=== PATIENT | male | born 1965 | race Caucasian/White ===

== ENCOUNTER 2021-03-01 13:15 | Inpatient (IN) | payer OTHER, BC ==
[~2021-03-01 13:15] MED LIST: Iopamidol-370 76% 500 ML 1 ML ONE
[2021-03-01] MEDS ORDERED: Calcium Chloride 1 GM/10 ML Abboject SYRINGE ONE (13:22)
[2021-03-01] MEDS ORDERED: Ondansetron PF 4 MG/2 ML Vial ONE (13:22)
[2021-03-01 13:42] LABS: Hemoglobin 15.2 g/dL (14.0-18.0); Mean Corpuscular Hemoglobin 35.6 pg (27.0-31.0); RBC Distribution Width 13.9 % (11.5-14.5); Red Blood Cell (RBC) Count 4.27 mill/uL (4.70-6.10); White Blood Cell (WBC) Count 19.8 thou/uL (4.8-10.8)
[2021-03-01 13:53] LABS: INR-International Normal Ratio 1.9; PTT 32.6 sec (22.9-36.1); Prothrombin Time 21.7 sec (12.0-14.7)
[2021-03-01 13:54] LABS: ALT (SGPT) 26 U/L (8-55); AST (SGOT) 32 U/L (5-34); Albumin 2.9 g/dL (3.5-5.0); Alkaline Phosphatase 53 U/L (40-110); Anion Gap 24 mmol/L (10-20); BUN (Urea Nitrogen) 47 mg/dL (8.4-25.7); Bilirubin, Total 2.7 mg/dL (0.2-1.2); Calc. Creatinine Clearance 0 mL/min (70-130); Carbon Dioxide 13 mmol/L (22-29); Chloride 96 mmol/L (98-107); Globulin 3.6 g/dL (2.4-3.5); Glucose 376 mg/dL (70-105); Potassium 4.4 mmol/L (3.5-5.1); Protein, Total 6.5 g/dL (6.0-8.3); Sodium 129 mmol/L (136-145)
[2021-03-01 14:01] LABS: Band 72 % (5-11); Lymphocytes 2 % (21-51); MDiff Complete? YES; Macrocytosis SLIGHT = 6-15 cells (100X) (0-5/hpf); Mean Platelet Volume 8.6 fL (7.4-10.4); Metamyelocyte 6 % (0-0); Monocytes 3 % (0-10); Neutrophil 17 % (42-75); Platelet Count 86 thou/uL (130-400); Platelet Morphology Comment Appears Decreased; Polychromasia SLIGHT = 2-3 cells (100X) (0-2/hpf); Reflex for Review?? YES
[2021-03-01 14:07] LABS: Bacteria/HPF 3+ HPF (None Seen); Bilirubin Negative (Negative); Blood, Urine 3+ (Negative); Clarity Turbid (Clear); Glucose, Urine (Dipstick) Normal (Negative); Ketone, Urine Trace mg/dL (Negative); Leukocyte 75 Leu/uL (Negative); Nitrite Negative (Negative); Protein, Urine (Dipstick) 50 mg/dL (Neg-Trace); RBC/HPF 0-3 HPF (0-3); Squamous Epithelial 0-3 HPF (0-3); Urobilinogen Normal mg/dL (Less than 2)
[2021-03-01 14:16] LABS: Amphetamine Not Detected (NotDetected); Barbiturates Screen Not Detected (NotDetected); Benzodiazepine Screen Not Detected (NotDetected); Cocaine Metabolite Screen Not Detected (NotDetected); Medtox Control Line Valid? VALID (VALID); Medtox Reader # READER 4; Methadone Not Detected (NotDetected); Methamphetamine Not Detected (NotDetected); Opiate Screen Detected (NotDetected); Oxycodone Screen Not Detected (NotDetected); Phencyclidine (PCP) Not Detected (NotDetected); THC/Cannabinoid Screen Not Detected (NotDetected); Tricyclic Screen Not Detected (NotDetected)
[2021-03-01 14:19] LABS: Acetaminophen Less than 6.0 mcg/mL (10.0-30.0); Alcohol Less than 10 mg/dL (Less than 10); Salicylate Less than 8.0 mg/dL (15.0-30.0)
[2021-03-01] MEDS ORDERED: Acetaminophen/Codeine 30-300mg Tablet PO PRN (17:25)
[2021-03-01] MEDS ORDERED: traMADol HCl 50 MG TAB PO PRN (17:25)
[2021-03-01] MEDS ORDERED: Dextrose 50% Abboject 50 ML SYRINGE SLOW IVP PRN (17:25)
[2021-03-01] MEDS ORDERED: Dextrose 5% in Water 1,000 ML IV PRN (17:25)
[2021-03-01] MEDS ORDERED: Ondansetron PF 4 MG/2 ML Vial IVP PRN (17:25)
[2021-03-01] MEDS ORDERED: Ondansetron ODT 4 MG TAB PO PRN (17:25)
[2021-03-01] MEDS ORDERED: Insulin Regular 300 UNITS/3 ML VIAL SC PRN (17:25)
[2021-03-01] MEDS ORDERED: hydrALAZINE 20 MG/ML VIAL SLOW IVP PRN (17:25)
[2021-03-01] MEDS ORDERED: Ibuprofen 200 MG TAB PO PRN (18:12)
[2021-03-01] MEDS ORDERED: Acetylcysteine 20% 200 MG/ML 30 ML VIAL PO SCH (18:15)
[2021-03-01 19:07] LABS: Phosphorus 3.2 mg/dL (2.3-4.7)
[2021-03-01] MEDS: Sodium Bicarbonate 150 MEQ in Dextrose 5% in Water 1,000 ML IV SCH (19:12)
[2021-03-01] MEDS: Insulin Regular 300 UNITS/3 ML VIAL SC PRN (19:13)
[2021-03-01 20:54] LABS: Lactic Acid 6.9 mmol/L (0.5-2.2)
[2021-03-01 20:55] LABS: Anion Gap 22 mmol/L (10-20); BUN (Urea Nitrogen) 53 mg/dL (8.4-25.7); Calc. Creatinine Clearance 22 mL/min (70-130); Calcium 8.1 mg/dL (7.8-10.44); Carbon Dioxide 12 mmol/L (22-29); Chloride 98 mmol/L (98-107); Glucose 311 mg/dL (70-105); Phosphorus 3.2 mg/dL (2.3-4.7); Potassium 4.3 mmol/L (3.5-5.1); Sodium 128 mmol/L (136-145)
[2021-03-01] MEDS ORDERED: Magnesium Sulfate 4 GM in Sodium Chloride 0.9% 250 ML 250 ML IVPB SCH (21:30)
[2021-03-01] MEDS: Gabapentin 100 MG CAP PO SCH (22:33)
[2021-03-01] MEDS: Oxazepam 10 MG CAP PO SCH (22:33)
[2021-03-01] MEDS: Famotidine 20 MG TAB PO SCH (22:34)
[2021-03-01 23:37] LABS: Lactic Acid 6.3 mmol/L (0.5-2.2)
[2021-03-02] MEDS: Acetaminophen 500 MG TAB PO SCH ×2 (00:02→05:55)
[2021-03-02] MEDS: Oxazepam 10 MG CAP PO SCH ×2 (05:56→17:37)
[2021-03-02 06:25] LABS: Hemoglobin 16.8 g/dL (14.0-18.0); Mean Corpuscular HGB CONC 32.9 g/dL (32.0-36.0); Mean Platelet Volume 9.4 fL (7.4-10.4); Platelet Count 64 thou/uL (130-400); RBC Distribution Width 15.6 % (11.5-14.5); Red Blood Cell (RBC) Count 5.11 mill/uL (4.70-6.10); White Blood Cell (WBC) Count 22.4 thou/uL (4.8-10.8)
[2021-03-02 06:27] LABS: Hemoglobin A1c 6.8 % (4.0-6.0)
[2021-03-02 06:40] LABS: Anion Gap 23 mmol/L (10-20); BUN (Urea Nitrogen) 59 mg/dL (8.4-25.7); Calc. Creatinine Clearance 22 mL/min (70-130); Calcium 7.8 mg/dL (7.8-10.44); Carbon Dioxide 12 mmol/L (22-29); Chloride 97 mmol/L (98-107); Glucose 301 mg/dL (70-105); Phosphorus 2.6 mg/dL (2.3-4.7); Potassium 4.9 mmol/L (3.5-5.1); Sodium 127 mmol/L (136-145)
[2021-03-02] MEDS ORDERED: HumaLOG 300 UNITS/3 ML VIAL SC PRN ×2 (06:44)
[2021-03-02] MEDS: Insulin Regular 300 UNITS/3 ML VIAL SC PRN (06:45)
[2021-03-02 06:48] LABS: Lactic Acid 5.9 mmol/L (0.5-2.2)
[2021-03-02 06:52] LABS: Band 47 % (5-11); Lymphocytes 5 % (21-51); MDiff Complete? YES; Monocytes 2 % (0-10); Neutrophil 46 % (42-75); Platelet Morphology Comment Appears Decreased; Toxic Granulation SLIGHT
[2021-03-02 07:49] LABS: ALT (SGPT) 27 U/L (8-55); AST (SGOT) 41 U/L (5-34); Albumin 2.7 g/dL (3.5-5.0); Alkaline Phosphatase 57 U/L (40-110); Bilirubin, Direct 1.2 mg/dL (0.1-0.3); Bilirubin, Total 2.4 mg/dL (0.2-1.2); Protein, Total 6.3 g/dL (6.0-8.3)
[2021-03-02] MEDS: Sodium Bicarbonate 150 MEQ in Dextrose 5% in Water 1,000 ML IV SCH (07:57)
[2021-03-02] MEDS ORDERED: Phytonadione 5 MG in Sodium Chloride 0.9% 50 ML IVPB SCH (08:45)
[2021-03-02 09:48] LABS: INR-International Normal Ratio 1.5; PTT 31.2 sec (22.9-36.1); Prothrombin Time 18.3 sec (12.0-14.7)
[2021-03-02] MEDS ORDERED: Albumin 25% 25 GM/100 ML BOT IVPB SCH (09:48)
[2021-03-02 09:56] LABS: Actual Bicarbonate (HCO3a) 12.4 mEq/L (22-28); Base Excess (BEa) -8.1 mEq/L (-2.0 to +3.0); Calcium, Ionized (arterial) 1.02 mmol/L (1.12-1.30); Carboxyhemoglobin (COHb) 0.9 gm% (0.0-3.0); O2 Tension (PaO2), arterial 70.2 mmHg (80.0-100.0); Potassium - ABG Lab 3.73 mmol/L (3.70-5.30); pH, Arterial 7.46 (7.35-7.45)
[2021-03-02 10:02] LABS: ALV-art Gradient 56.905 mmHg (0-20); CO2 Tension 18.1 mmHg (35.0-45.0); Puncture Site LRA
[2021-03-02] MEDS: Sodium Chloride 0.9% 1,000 ML IV SCH ×3 (10:49→22:40)
[2021-03-02] MEDS: Thiamine 100 MG TAB PO SCH (11:22)
[2021-03-02] MEDS: Folic Acid 1 MG TAB PO SCH (11:22)
[2021-03-02] MEDS: Propranolol 10 MG TAB PO SCH (11:22)
[2021-03-02] MEDS: Gabapentin 100 MG CAP PO SCH (11:23)
[2021-03-02] MEDS ORDERED: Phenylephrine 10 MG/ML VIAL ONE (11:44)
[2021-03-02] MEDS ORDERED: Fentanyl 250 MCG/5 ML VIAL ONE (11:44)
[2021-03-02] MEDS ORDERED: Bupivacaine 0.25% HCL 30 ML VIAL ONE (12:19)
[2021-03-02] MEDS ORDERED: EPINEPHrine 1 MG/ML AMP ONE (12:19)
[2021-03-02] MEDS ORDERED: PROPOFOL 200 MG/20 ML VIAL ONE (12:32)
[2021-03-02] MEDS ORDERED: Rocuronium Bromide 10 MG/ML (10ML VIAL) ONE (12:32)
[2021-03-02] MEDS ORDERED: Succinylcholine 200 MG/10 ml SYRINGE FS ONE (12:32)
[2021-03-02] MEDS ORDERED: ePHEDrine Sulfate 50 MG/10 ML VIAL ONE (12:32)
[2021-03-02] MEDS ORDERED: PHENYLEPHRINE-NS 100 MCG/ML 10 ML SYRINGE ONE (12:32)
[2021-03-02] MEDS ORDERED: Calcium Chloride 1 GM/10 ML Abboject SYRINGE ONE (12:32)
[2021-03-02] MEDS ORDERED: Sodium Bicarb 50 MEQ/50 ML Abboject 8.4% SYRINGE ONE (12:55)
[2021-03-02 13:12] LABS: SARS-CoV-2 PCR by NAA Not Detected (NotDetected)
[2021-03-02] MEDS ORDERED: MEROPENEM 1 GM/50 ML 1 GM in Premix Bag 1 BAG IVPB SCH (13:15)
[2021-03-02] MEDS ORDERED: Albumin 5% 500 ML ONE (13:37)
[2021-03-02 15:07] LABS: INR-International Normal Ratio 1.8; PTT 36.5 sec (22.9-36.1); Prothrombin Time 20.8 sec (12.0-14.7)
[2021-03-02] MEDS ORDERED: Fentanyl CADD 100 ML ONE (16:11)
[2021-03-02 16:19] LABS: Actual Bicarbonate (HCO3a) 18.1 mEq/L (22-28); Base Excess (BEa) -7.1 mEq/L (-2.0 to +3.0); CO2 Tension 35.4 mmHg (35.0-45.0); Calcium, Ionized (arterial) 1.07 mmol/L (1.12-1.30); Carboxyhemoglobin (COHb) 0.3 gm% (0.0-3.0); Hemoglobin (Hb) 10.9 g/dL (14.0-18.0); O2 Tension (PaO2), arterial 119.2 mmHg (80.0-100.0); Potassium - ABG Lab 3.74 mmol/L (3.70-5.30); pH, Arterial 7.33 (7.35-7.45)
[2021-03-02 16:20] LABS: Puncture Site Arterial Line
[2021-03-02] MEDS: HUMULIN R 100 UNITS in Sodium Chloride 0.9% 100 ML IVPB SCH (16:51)
[2021-03-02] MEDS ORDERED: Ventilator Sedation Protocol 1 EACH FS SCH (19:41)
[2021-03-02] MEDS ORDERED: Propofol BOLUS 1,000 MG/100 ML VIAL IV PRN (19:45)
[2021-03-02] MEDS ORDERED: Morphine 2 MG/ML VIAL SLOW IVP PRN (19:45)
[2021-03-02] MEDS ORDERED: DISCONTINUE PREVIOUS NARCOTIC PAIN MEDICATIONS AND BENZODIAZEPINES FS SCH (19:45)
[2021-03-02] MEDS ORDERED: Fentanyl BOLUS 250 ML IVPB PRN (19:45)
[2021-03-02] MEDS ORDERED: Fentanyl CADD 100 ML IV SCH (19:45)
[2021-03-02] MEDS ORDERED: Lorazepam 2 MG/ML VIAL SLOW IVP PRN (19:45)
[2021-03-02] MEDS ORDERED: Propofol 1,000 MG/100 ML VIAL IV PRN (19:45)
[2021-03-02] MEDS ORDERED: Sodium Chloride 0.9% 500 ML IV SCH (22:00)
[2021-03-02] MEDS: Famotidine 20 MG TAB PO SCH (22:40)
[2021-03-03 05:48] LABS: ALT (SGPT) 16 U/L (8-55); AST (SGOT) 23 U/L (5-34); Alkaline Phosphatase 47 U/L (40-110); Bilirubin, Total 2.9 mg/dL (0.2-1.2); Protein, Total 5.1 g/dL (6.0-8.3)
[2021-03-03 05:49] LABS: Anion Gap 15 mmol/L (10-20); BUN (Urea Nitrogen) 61 mg/dL (8.4-25.7); Calc. Creatinine Clearance 37 mL/min (70-130); Calcium 8.2 mg/dL (7.8-10.44); Carbon Dioxide 20 mmol/L (22-29); Chloride 107 mmol/L (98-107); Glucose 163 mg/dL (70-105); Magnesium 1.9 mg/dL (1.6-2.6); Phosphorus 1.7 mg/dL (2.3-4.7); Sodium 139 mmol/L (136-145)
[2021-03-03] MEDS: HUMULIN R 100 UNITS in Sodium Chloride 0.9% 100 ML IVPB SCH (06:10)
[2021-03-03] MEDS: Sodium Chloride 0.9% 1,000 ML IV SCH ×3 (06:15→21:39)
[2021-03-03 06:27] LABS: Hemoglobin 8.9 g/dL (14.0-18.0); Lymphocytes 6 % (21-51); MDiff Complete? YES; Mean Corpuscular HGB CONC 34.9 g/dL (32.0-36.0); Mean Corpuscular Hemoglobin 34.3 pg (27.0-31.0); Mean Corpuscular Volume 98.3 fL (78.0-98.0); Mean Platelet Volume 8.5 fL (7.4-10.4); Monocytes 4 % (0-10); Neutrophil 90 % (42-75); Platelet Count 55 thou/uL (130-400); Platelet Morphology Comment Appears Decreased; RBC Distribution Width 15.9 % (11.5-14.5); Red Blood Cell (RBC) Count 2.59 mill/uL (4.70-6.10); White Blood Cell (WBC) Count 10.6 thou/uL (4.8-10.8)
[2021-03-03 06:33] LABS: Phosphorus 1.8 mg/dL (2.3-4.7)
[2021-03-03] MEDS ORDERED: Potassium Phosphate 30 MMOL, Magnesium Sulfate 2 GM in Sodium Chloride 0.9% 250 ML 250 ML IVPB SCH (08:00)
[2021-03-03] MEDS ORDERED: Magnesium Sulfate 2 GM in Sodium Chloride 0.9% 100 ML IVPB SCH ×2 (08:00→09:00)
[2021-03-03] MEDS: Thiamine 100 MG TAB PO SCH (09:32)
[2021-03-03] MEDS: Folic Acid 1 MG TAB PO SCH (09:32)
[2021-03-03] MEDS: Pantoprazole 40 MG VIAL IVP SCH ×2 (09:32→21:24)
[2021-03-03] MEDS: Propranolol 10 MG TAB PO SCH (09:32)
[2021-03-03] MEDS ORDERED: Propofol 1,000 MG/100 ML VIAL IV ONE (10:05)
[2021-03-03] MEDS: Insulin Regular 300 UNITS/3 ML VIAL SC PRN (20:19)
[2021-03-04] MEDS: Insulin Regular 300 UNITS/3 ML VIAL SC PRN ×5 (00:23→20:07)
[2021-03-04 04:49] LABS: Hemoglobin 9.2 g/dL (14.0-18.0); Mean Corpuscular HGB CONC 34.5 g/dL (32.0-36.0); Mean Corpuscular Hemoglobin 34.7 pg (27.0-31.0); Mean Platelet Volume 8.2 fL (7.4-10.4); Platelet Count 44 thou/uL (130-400); RBC Distribution Width 16.1 % (11.5-14.5); Red Blood Cell (RBC) Count 2.65 mill/uL (4.70-6.10); White Blood Cell (WBC) Count 6.7 thou/uL (4.8-10.8)
[2021-03-04 04:53] LABS: Albumin 2.6 g/dL (3.5-5.0); Anion Gap 12 mmol/L (10-20); BUN (Urea Nitrogen) 55 mg/dL (8.4-25.7); BUN/Creatinine Ratio 33.95; Calc. Creatinine Clearance 63 mL/min (70-130); Carbon Dioxide 18 mmol/L (22-29); Chloride 117 mmol/L (98-107); Glucose 227 mg/dL (70-105); Magnesium 3.8 mg/dL (1.6-2.6); Potassium 3.2 mmol/L (3.5-5.1); Sodium 144 mmol/L (136-145)
[2021-03-04 04:59] LABS: Phosphorus 1.9 mg/dL (2.3-4.7)
[2021-03-04 05:03] LABS: Phosphorus 1.9 mg/dL (2.3-4.7)
[2021-03-04 05:08] LABS: Band 13 % (5-11); Eosinophils 1 % (0-10); Hypochromia SLIGHT = 6-15 cells (100X) (0-5/hpf); Lymphocytes 6 % (21-51); MDiff Complete? YES; Metamyelocyte 1 % (0-0); Monocytes 3 % (0-10); Neutrophil 76 % (42-75); Platelet Morphology Comment Appears Decreased
[2021-03-04] MEDS ORDERED: Propofol BOLUS 1,000 MG/100 ML VIAL IV PRN (05:45)
[2021-03-04] MEDS: Propofol 1,000 MG/100 ML VIAL IV PRN ×2 (05:57→16:50)
[2021-03-04] MEDS ORDERED: Potassium Phosphate 30 MMOL in Sodium Chloride 0.9% 250 ML 250 ML IVPB SCH (06:00)
[2021-03-04] MEDS: Thiamine 100 MG TAB PO SCH (09:24)
[2021-03-04] MEDS: Pantoprazole 40 MG VIAL IVP SCH ×2 (09:24→20:05)
[2021-03-04] MEDS: Propranolol 10 MG TAB PO SCH (09:24)
[2021-03-04] MEDS: Folic Acid 1 MG TAB PO SCH (09:24)
[2021-03-04] MEDS: Sodium Chloride 0.9% 1,000 ML IV SCH ×3 (09:25→20:05)
[2021-03-04] MEDS: Sodium Chloride 0.9% (PF) 10 ML VIAL FS PRN (09:25)
[2021-03-04] MEDS: Oxazepam 10 MG CAP PO SCH ×2 (12:25→20:05)
[2021-03-05] MEDS: Insulin Regular 300 UNITS/3 ML VIAL SC PRN ×5 (00:28→20:48)
[2021-03-05] MEDS: Oxazepam 10 MG CAP PO SCH ×3 (04:11→20:35)
[2021-03-05] MEDS: Propofol 1,000 MG/100 ML VIAL IV PRN ×2 (04:21→11:37)
[2021-03-05 04:46] LABS: Albumin 2.5 g/dL (3.5-5.0); Anion Gap 11 mmol/L (10-20); BUN (Urea Nitrogen) 43 mg/dL (8.4-25.7); BUN/Creatinine Ratio 35.25; Calc. Creatinine Clearance 83 mL/min (70-130); Carbon Dioxide 19 mmol/L (22-29); Chloride 123 mmol/L (98-107); Glucose 208 mg/dL (70-105); Phosphorus 2.1 mg/dL (2.3-4.7); Potassium 3.2 mmol/L (3.5-5.1); Sodium 150 mmol/L (136-145)
[2021-03-05] MEDS ORDERED: Potassium Phosphate 30 MMOL in Sodium Chloride 0.9% 250 ML 250 ML IVPB SCH (06:00)
[2021-03-05] MEDS: Lactated Ringer's 1,000 ML IV SCH ×2 (06:12→15:17)
[2021-03-05] MEDS: cefTRIAXone\\ROCEPHIN 1 GM in Sodium Chloride 0.9% 100 ML IVPB SCH (06:12)
[2021-03-05] MEDS: Thiamine 100 MG TAB PO SCH (08:07)
[2021-03-05] MEDS: Pantoprazole 40 MG VIAL IVP SCH ×2 (08:07→20:35)
[2021-03-05] MEDS: Folic Acid 1 MG TAB PO SCH (08:07)
[2021-03-05] MEDS: Propranolol 10 MG TAB PO SCH (09:20)
[2021-03-05] MEDS: Cyclobenzaprine 10 MG TAB PO PRN (11:37)
[2021-03-05] MEDS ORDERED: Fentanyl CADD 100 ML ONE (13:46)
[2021-03-05] MEDS: Dextrose 5% in Water 1,000 ML IV SCH (19:18)
[2021-03-06] MEDS: Insulin Regular 300 UNITS/3 ML VIAL SC PRN ×5 (00:12→21:01)
[2021-03-06] MEDS: Oxazepam 10 MG CAP PO SCH ×3 (03:34→20:48)
[2021-03-06 04:52] LABS: Band 6 % (5-11); Eosinophils 5 % (0-10); Hemoglobin 7.9 g/dL (14.0-18.0); Hypochromia SLIGHT = 6-15 cells (100X) (0-5/hpf); Lymphocytes 18 % (21-51); MDiff Complete? YES; Mean Corpuscular HGB CONC 34.2 g/dL (32.0-36.0); Mean Corpuscular Hemoglobin 35.1 pg (27.0-31.0); Mean Platelet Volume 9.3 fL (7.4-10.4); Monocytes 6 % (0-10); Neutrophil 65 % (42-75); Phosphorus 2.2 mg/dL (2.3-4.7); Platelet Count 48 thou/uL (130-400); Platelet Morphology Comment Appears Decreased; Polychromasia SLIGHT = 2-3 cells (100X) (0-2/hpf); RBC Distribution Width 15.7 % (11.5-14.5); Red Blood Cell (RBC) Count 2.24 mill/uL (4.70-6.10); White Blood Cell (WBC) Count 5.4 thou/uL (4.8-10.8)
[2021-03-06 04:55] LABS: Albumin 2.2 g/dL (3.5-5.0); Anion Gap 11 mmol/L (10-20); BUN (Urea Nitrogen) 33 mg/dL (8.4-25.7); BUN/Creatinine Ratio 30.28; Calc. Creatinine Clearance 91 mL/min (70-130); Calcium 7.8 mg/dL (7.8-10.44); Carbon Dioxide 18 mmol/L (22-29); Chloride 119 mmol/L (98-107); Glucose 320 mg/dL (70-105); Magnesium 1.6 mg/dL (1.6-2.6); Phosphorus 2.2 mg/dL (2.3-4.7); Potassium 3.5 mmol/L (3.5-5.1); Sodium 144 mmol/L (136-145)
[2021-03-06 04:58] LABS: ALT (SGPT) 21 U/L (8-55); AST (SGOT) 27 U/L (5-34); Albumin 2.2 g/dL (3.5-5.0); Alkaline Phosphatase 96 U/L (40-110); Bilirubin, Direct 1.6 mg/dL (0.1-0.3); Bilirubin, Total 2.3 mg/dL (0.2-1.2); Protein, Total 4.9 g/dL (6.0-8.3)
[2021-03-06] MEDS: cefTRIAXone\\ROCEPHIN 1 GM in Sodium Chloride 0.9% 100 ML IVPB SCH (05:00)
[2021-03-06] MEDS: Dextrose 5% in Water 1,000 ML IV SCH ×2 (05:41→14:20)
[2021-03-06] MEDS ORDERED: Magnesium Sulfate 4 GM, Potassium Phosphate 30 MMOL in Sodium Chloride 0.9% 250 ML 250 ML IVPB SCH (08:15)
[2021-03-06 08:56] LABS: INR-International Normal Ratio 1.3; PTT 33.3 sec (22.9-36.1)
[2021-03-06] MEDS: Pantoprazole 40 MG VIAL IVP SCH ×2 (09:05→20:49)
[2021-03-06] MEDS: Propranolol 10 MG TAB PO SCH (09:05)
[2021-03-06] MEDS: Folic Acid 1 MG TAB PO SCH (09:05)
[2021-03-06] MEDS: Thiamine 100 MG TAB PO SCH (09:06)
[2021-03-06] MEDS ORDERED: DC Sedation Protocol FS ONE (09:23)
[2021-03-06] MEDS ORDERED: Haloperidol Lactate 5 MG/ML VIAL SLOW IVP SCH (22:15)
[2021-03-07] MEDS: Dextrose 5% in Water 1,000 ML IV SCH (00:53)
[2021-03-07] MEDS: Insulin Regular 300 UNITS/3 ML VIAL SC PRN ×6 (01:20→20:06)
[2021-03-07] MEDS: Oxazepam 10 MG CAP PO SCH ×3 (04:24→20:05)
[2021-03-07 05:15] LABS: #Eosinphils 0.1 thou/uL (0.0-0.7); #Lymphocytes 0.9 thou/uL (1.20-3.40); #Monocytes 0.7 thou/uL (0.11-0.59); #Neutrophils 4.6 thou/uL (1.40-6.50); %Basophils 0.5 % (0.0-1.0); %Eosinophils 2.3 % (0.0-10.0); %Monocytes 11.2 % (0.0-10.0); %Neutrophils 72.1 % (42.0-75.0); Hemoglobin 7.7 g/dL (14.0-18.0); Mean Corpuscular HGB CONC 33.3 g/dL (32.0-36.0); Mean Corpuscular Hemoglobin 33.9 pg (27.0-31.0); Mean Platelet Volume 9.6 fL (7.4-10.4); Platelet Count 64 thou/uL (130-400); RBC Distribution Width 15.1 % (11.5-14.5); Red Blood Cell (RBC) Count 2.28 mill/uL (4.70-6.10); White Blood Cell (WBC) Count 6.4 thou/uL (4.8-10.8)
[2021-03-07 05:33] LABS: Anion Gap 13 mmol/L (10-20); BUN (Urea Nitrogen) 32 mg/dL (8.4-25.7); Calc. Creatinine Clearance 94 mL/min (70-130); Calcium 7.6 mg/dL (7.8-10.44); Carbon Dioxide 16 mmol/L (22-29); Chloride 117 mmol/L (98-107); Glucose 272 mg/dL (70-105); Phosphorus 2.5 mg/dL (2.3-4.7); Potassium 3.7 mmol/L (3.5-5.1); Sodium 142 mmol/L (136-145)
[2021-03-07] MEDS: cefTRIAXone\\ROCEPHIN 1 GM in Sodium Chloride 0.9% 100 ML IVPB SCH (06:18)
[2021-03-07] MEDS ORDERED: Potassium Phosphate 30 MMOL in Sodium Chloride 0.9% 500 ML IVPB SCH (08:15)
[2021-03-07] MEDS ORDERED: Potassium Phosphate 30 MMOL in Sodium Chloride 0.9% 250 ML 250 ML IVPB SCH (08:30)
[2021-03-07] MEDS: Sodium Chloride 0.9% (PF) 10 ML VIAL FS PRN (08:48)
[2021-03-07] MEDS: Pantoprazole 40 MG VIAL IVP SCH ×2 (08:48→20:06)
[2021-03-07] MEDS: Folic Acid 1 MG TAB PO SCH (08:48)
[2021-03-07] MEDS: Thiamine 100 MG TAB PO SCH (08:52)
[2021-03-07] MEDS ORDERED: Enoxaparin Sodium 30 MG/0.3 ML SYRINGE SC SCH (09:00)
[2021-03-07] MEDS: Propranolol 10 MG TAB PO SCH (09:16)
[2021-03-07] MEDS ORDERED: carBAMazepine 200 MG TAB PO SCH ×2 (09:30→12:00)
[2021-03-07] MEDS: carBAMazepine 200 MG TAB PO SCH ×2 (12:52→17:04)
[2021-03-07] MEDS: Cyclobenzaprine 10 MG TAB PO PRN (14:49)
[2021-03-08] MEDS: Insulin Regular 300 UNITS/3 ML VIAL SC PRN ×5 (00:59→20:44)
[2021-03-08] MEDS: Oxazepam 10 MG CAP PO SCH ×3 (04:00→20:45)
[2021-03-08 04:40] LABS: #Eosinphils 0.2 thou/uL (0.0-0.7); #Lymphocytes 0.8 thou/uL (1.20-3.40); #Monocytes 0.8 thou/uL (0.11-0.59); #Neutrophils 6.5 thou/uL (1.40-6.50); %Basophils 0.3 % (0.0-1.0); %Eosinophils 1.9 % (0.0-10.0); %Lymphocytes 10.2 % (21.0-51.0); %Monocytes 9.2 % (0.0-10.0); %Neutrophils 78.4 % (42.0-75.0); Hemoglobin 8.1 g/dL (14.0-18.0); Mean Corpuscular HGB CONC 33.9 g/dL (32.0-36.0); Mean Corpuscular Hemoglobin 34.7 pg (27.0-31.0); Mean Platelet Volume 9.7 fL (7.4-10.4); Platelet Count 90 thou/uL (130-400); RBC Distribution Width 14.9 % (11.5-14.5); Red Blood Cell (RBC) Count 2.32 mill/uL (4.70-6.10); White Blood Cell (WBC) Count 8.3 thou/uL (4.8-10.8)
[2021-03-08 04:49] LABS: INR-International Normal Ratio 1.3; PTT 28.6 sec (22.9-36.1); Prothrombin Time 16.4 sec (12.0-14.7)
[2021-03-08 04:57] LABS: Anion Gap 13 mmol/L (10-20); BUN (Urea Nitrogen) 33 mg/dL (8.4-25.7); Calc. Creatinine Clearance 98 mL/min (70-130); Carbon Dioxide 17 mmol/L (22-29); Chloride 117 mmol/L (98-107); Glucose 317 mg/dL (70-105); Magnesium 1.7 mg/dL (1.6-2.6); Phosphorus 2.6 mg/dL (2.3-4.7); Sodium 143 mmol/L (136-145)
[2021-03-08] MEDS: cefTRIAXone\\ROCEPHIN 1 GM in Sodium Chloride 0.9% 100 ML IVPB SCH (06:17)
[2021-03-08] MEDS ORDERED: Dextrose 5% in Water 1,000 ML IV PRN (06:50)
[2021-03-08] MEDS ORDERED: Dextrose 50% Abboject 50 ML SYRINGE SLOW IVP PRN (06:50)
[2021-03-08] MEDS ORDERED: Potassium Phosphate 30 MMOL, Magnesium Sulfate 3 GM in Sodium Chloride 0.9% 250 ML 250 ML IVPB SCH (07:00)
[2021-03-08] MEDS ORDERED: Magnesium Sulfate 3 GM in Sodium Chloride 0.9% 100 ML IV SCH (07:00)
[2021-03-08] MEDS: Folic Acid 1 MG TAB PO SCH (08:32)
[2021-03-08] MEDS: carBAMazepine 200 MG TAB PO SCH ×3 (08:32→17:07)
[2021-03-08] MEDS: Thiamine 100 MG TAB PO SCH (08:32)
[2021-03-08] MEDS: Pantoprazole 40 MG VIAL IVP SCH (08:33)
[2021-03-08] MEDS: Enoxaparin Sodium 40 MG/0.4 ML SYRINGE SC SCH (08:38)
[2021-03-08] MEDS ORDERED: Lantus 1000 UNITS/10 ML VIAL SC SCH ×2 (09:00→21:00)
[2021-03-08] MEDS: Propranolol 10 MG TAB PO SCH (09:40)
[2021-03-09] MEDS: Insulin Regular 300 UNITS/3 ML VIAL SC PRN ×5 (01:05→21:18)
[2021-03-09] MEDS: Oxazepam 10 MG CAP PO SCH ×3 (04:42→20:10)
[2021-03-09 05:07] LABS: #Eosinphils 0.2 thou/uL (0.0-0.7); #Lymphocytes 0.9 thou/uL (1.20-3.40); #Monocytes 0.9 thou/uL (0.11-0.59); #Neutrophils 6.3 thou/uL (1.40-6.50); %Basophils 0.1 % (0.0-1.0); %Eosinophils 2.3 % (0.0-10.0); %Lymphocytes 10.7 % (21.0-51.0); Hemoglobin 9.1 g/dL (14.0-18.0); Mean Corpuscular Hemoglobin 35.3 pg (27.0-31.0); Mean Platelet Volume 9.7 fL (7.4-10.4); Platelet Count 122 thou/uL (130-400); RBC Distribution Width 15.2 % (11.5-14.5); Red Blood Cell (RBC) Count 2.58 mill/uL (4.70-6.10); White Blood Cell (WBC) Count 8.3 thou/uL (4.8-10.8)
[2021-03-09 05:26] LABS: Anion Gap 13 mmol/L (10-20); BUN (Urea Nitrogen) 34 mg/dL (8.4-25.7); Calc. Creatinine Clearance 107 mL/min (70-130); Calcium 7.9 mg/dL (7.8-10.44); Carbon Dioxide 15 mmol/L (22-29); Chloride 121 mmol/L (98-107); Glucose 283 mg/dL (70-105); Potassium 4.2 mmol/L (3.5-5.1); Sodium 145 mmol/L (136-145)
[2021-03-09] MEDS: cefTRIAXone\\ROCEPHIN 1 GM in Sodium Chloride 0.9% 100 ML IVPB SCH (06:42)
[2021-03-09] MEDS: carBAMazepine 200 MG TAB PO SCH ×3 (08:54→17:23)
[2021-03-09] MEDS: Thiamine 100 MG TAB PO SCH (08:55)
[2021-03-09] MEDS: Enoxaparin Sodium 40 MG/0.4 ML SYRINGE SC SCH (08:55)
[2021-03-09] MEDS: Folic Acid 1 MG TAB PO SCH (08:56)
[2021-03-09] MEDS: FLUoxetine HCl 20 MG CAP PO SCH (08:56)
[2021-03-09] MEDS: Lantus 1000 UNITS/10 ML VIAL SC SCH ×2 (08:57→21:18)
[2021-03-09] MEDS: Pantoprazole 40 MG VIAL IVP SCH (09:03)
[2021-03-09] MEDS: Propranolol 10 MG TAB PO SCH (11:56)
[2021-03-09] MEDS ORDERED: Sodium Bicarbonate Tab 325 MG TAB PO SCH (21:00)
[2021-03-10] MEDS: Insulin Regular 300 UNITS/3 ML VIAL SC PRN ×3 (01:07→20:34)
[2021-03-10] MEDS: Oxazepam 10 MG CAP PO SCH ×3 (04:28→20:30)
[2021-03-10] MEDS: cefTRIAXone\\ROCEPHIN 1 GM in Sodium Chloride 0.9% 100 ML IVPB SCH (06:03)
[2021-03-10 07:00] LABS: Albumin 2.5 g/dL (3.5-5.0); Anion Gap 14 mmol/L (10-20); BUN (Urea Nitrogen) 29 mg/dL (8.4-25.7); BUN/Creatinine Ratio 31.18; Calc. Creatinine Clearance 104 mL/min (70-130); Calcium 8.1 mg/dL (7.8-10.44); Carbon Dioxide 18 mmol/L (22-29); Chloride 124 mmol/L (98-107); Glucose 157 mg/dL (70-105); Phosphorus 2.6 mg/dL (2.3-4.7); Potassium 3.5 mmol/L (3.5-5.1); Sodium 152 mmol/L (136-145)
[2021-03-10 08:11] LABS: Carbamazepine-Tegretol 12.3 ug/mL (4.0-12.0)
[2021-03-10] MEDS: Propranolol 10 MG TAB PO SCH (09:45)
[2021-03-10] MEDS: FLUoxetine HCl 20 MG CAP PO SCH (09:45)
[2021-03-10] MEDS: Folic Acid 1 MG TAB PO SCH (09:46)
[2021-03-10] MEDS: Enoxaparin Sodium 40 MG/0.4 ML SYRINGE SC SCH (09:46)
[2021-03-10] MEDS: Thiamine 100 MG TAB PO SCH (09:46)
[2021-03-10] MEDS: carBAMazepine 100 mg Chewable Tablet PO SCH ×2 (11:21→18:28)
[2021-03-10] MEDS: Pantoprazole 40 MG VIAL IVP SCH (11:25)
[2021-03-10] MEDS: carBAMazepine 200 MG TAB PO SCH (11:29)
[2021-03-10] MEDS: Dextrose 5% in Water 1,000 ML IV SCH ×2 (11:39→18:39)
[2021-03-10] MEDS: Lantus 1000 UNITS/10 ML VIAL SC SCH ×2 (15:06→20:33)
[2021-03-10] MEDS ORDERED: Sterile Water 10 ML VIAL IVP SCH (20:15)
[2021-03-10] MEDS ORDERED: Activase 2 MG VIAL CATH SCH (20:30)
[2021-03-11] MEDS: Oxazepam 10 MG CAP PO SCH ×3 (04:49→22:45)
[2021-03-11] MEDS: Dextrose 5% in Water 1,000 ML IV SCH ×2 (04:50→12:09)
[2021-03-11] MEDS: cefTRIAXone\\ROCEPHIN 1 GM in Sodium Chloride 0.9% 100 ML IVPB SCH (06:27)
[2021-03-11 07:56] LABS: Anion Gap 12 mmol/L (10-20); BUN (Urea Nitrogen) 24 mg/dL (8.4-25.7); Calc. Creatinine Clearance 107 mL/min (70-130); Calcium 7.6 mg/dL (7.8-10.44); Carbon Dioxide 18 mmol/L (22-29); Chloride 121 mmol/L (98-107); Glucose 145 mg/dL (70-105); Potassium 3.7 mmol/L (3.5-5.1); Sodium 147 mmol/L (136-145)
[2021-03-11] MEDS: carBAMazepine 100 mg Chewable Tablet PO SCH ×3 (10:02→18:11)
[2021-03-11] MEDS: Pantoprazole 40 MG VIAL IVP SCH (10:03)
[2021-03-11] MEDS: FLUoxetine HCl 20 MG CAP PO SCH (10:03)
[2021-03-11] MEDS: Folic Acid 1 MG TAB PO SCH (10:03)
[2021-03-11] MEDS: Thiamine 100 MG TAB PO SCH (10:04)
[2021-03-11] MEDS: Enoxaparin Sodium 40 MG/0.4 ML SYRINGE SC SCH (10:04)
[2021-03-11] MEDS: Lantus 1000 UNITS/10 ML VIAL SC SCH ×2 (10:05→22:44)
[2021-03-11] MEDS: Propranolol 10 MG TAB PO SCH (10:05)
[2021-03-11] MEDS: Insulin Regular 300 UNITS/3 ML VIAL SC PRN (12:01)
[2021-03-11] MEDS: Sodium Bicarbonate Tab 325 MG TAB PO SCH ×2 (14:35→22:45)
[2021-03-11] MEDS ORDERED: Melatonin 3 MG TAB PO PRN (19:02)
[2021-03-12] MEDS: Oxazepam 10 MG CAP PO SCH ×3 (03:15→20:47)
[2021-03-12] MEDS: Dextrose 5% in Water 1,000 ML IV SCH (03:19)
[2021-03-12 05:35] LABS: Anion Gap 10 mmol/L (10-20); BUN (Urea Nitrogen) 19 mg/dL (8.4-25.7); Calc. Creatinine Clearance 111 mL/min (70-130); Calcium 7.2 mg/dL (7.8-10.44); Carbon Dioxide 17 mmol/L (22-29); Chloride 115 mmol/L (98-107); Glucose 128 mg/dL (70-105); Potassium 3.4 mmol/L (3.5-5.1); Sodium 139 mmol/L (136-145)
[2021-03-12] MEDS ORDERED: Magnesium Sulfate 4 GM in Sodium Chloride 0.9% 250 ML 250 ML IVPB SCH ×2 (08:45→15:00)
[2021-03-12] MEDS: Metamucil PACK PO SCH (08:54)
[2021-03-12] MEDS: Potassium Bicarbonate/Cit Ac 20 MEQ TAB PO SCH ×2 (08:54→14:12)
[2021-03-12] MEDS: Folic Acid 1 MG TAB PO SCH (08:54)
[2021-03-12] MEDS: FLUoxetine HCl 20 MG CAP PO SCH (08:56)
[2021-03-12] MEDS: carBAMazepine 100 mg Chewable Tablet PO SCH ×3 (08:56→18:16)
[2021-03-12] MEDS: Enoxaparin Sodium 40 MG/0.4 ML SYRINGE SC SCH (08:57)
[2021-03-12] MEDS: Sodium Bicarbonate Tab 325 MG TAB PO SCH ×3 (08:57→20:47)
[2021-03-12] MEDS: Thiamine 100 MG TAB PO SCH (08:57)
[2021-03-12] MEDS: Pantoprazole 40 MG VIAL IVP SCH (08:57)
[2021-03-12] MEDS: Lantus 1000 UNITS/10 ML VIAL SC SCH ×2 (08:58→20:48)
[2021-03-12] MEDS ORDERED: Ergocalciferol 1.25 MG(50,000 UNITS) CAP PO SCH (10:30)
[2021-03-12] MEDS: Propranolol 10 MG TAB PO SCH (12:16)
[2021-03-12 13:51] LABS: Phosphorus 2.7 mg/dL (2.3-4.7)
[2021-03-13 04:48] LABS: #Basophils 0.1 thou/uL (0.0-0.2); #Eosinphils 0.3 thou/uL (0.0-0.7); #Lymphocytes 1.4 thou/uL (1.20-3.40); #Neutrophils 9.2 thou/uL (1.40-6.50); %Basophils 0.9 % (0.0-1.0); %Eosinophils 2.1 % (0.0-10.0); %Lymphocytes 11.6 % (21.0-51.0); %Neutrophils 77.3 % (42.0-75.0); Hemoglobin 8.2 g/dL (14.0-18.0); Mean Corpuscular HGB CONC 32.4 g/dL (32.0-36.0); Mean Corpuscular Hemoglobin 32.8 pg (27.0-31.0); Mean Platelet Volume 8.6 fL (7.4-10.4); Platelet Count 235 thou/uL (130-400); RBC Distribution Width 14.4 % (11.5-14.5); Red Blood Cell (RBC) Count 2.51 mill/uL (4.70-6.10); White Blood Cell (WBC) Count 11.9 thou/uL (4.8-10.8)
[2021-03-13 05:05] LABS: Phosphorus 2.7 mg/dL (2.3-4.7)
[2021-03-13 05:09] LABS: Anion Gap 9 mmol/L (10-20); BUN (Urea Nitrogen) 15 mg/dL (8.4-25.7); BUN/Creatinine Ratio 17.65; Calc. Creatinine Clearance 114 mL/min (70-130); Calcium 7.3 mg/dL (7.8-10.44); Carbon Dioxide 18 mmol/L (22-29); Chloride 114 mmol/L (98-107); Phosphorus 2.8 mg/dL (2.3-4.7); Potassium 3.2 mmol/L (3.5-5.1); Sodium 138 mmol/L (136-145)
[2021-03-13 05:11] LABS: Glucose 45 mg/dL (70-105)
[2021-03-13] MEDS: Oxazepam 10 MG CAP PO SCH ×2 (05:34→12:04)
[2021-03-13] MEDS ORDERED: Potassium Phosphate 30 MMOL in Sodium Chloride 0.9% 250 ML 250 ML IVPB SCH (06:30)
[2021-03-13] MEDS: Propranolol 10 MG TAB PO SCH (09:16)
[2021-03-13] MEDS: Enoxaparin Sodium 40 MG/0.4 ML SYRINGE SC SCH (09:16)
[2021-03-13] MEDS: Metamucil PACK PO SCH (09:17)
[2021-03-13] MEDS: FLUoxetine HCl 20 MG CAP PO SCH (09:18)
[2021-03-13] MEDS: Potassium Bicarbonate/Cit Ac 20 MEQ TAB PO SCH ×2 (09:18→16:05)
[2021-03-13] MEDS: carBAMazepine 100 mg Chewable Tablet PO SCH ×3 (09:19→17:22)
[2021-03-13] MEDS: Sodium Bicarbonate Tab 325 MG TAB PO SCH (09:19)
[2021-03-13] MEDS: Pantoprazole 40 MG VIAL IVP SCH (09:19)
[2021-03-13] MEDS: Folic Acid 1 MG TAB PO SCH (09:19)
[2021-03-13] MEDS: Thiamine 100 MG TAB PO SCH (09:19)
[2021-03-13] MEDS: Lantus 1000 UNITS/10 ML VIAL SC SCH (09:57)
[2021-03-13] MEDS ORDERED: Lantus 1000 UNITS/10 ML VIAL SC SCH ×2 (10:00→21:00)
[2021-03-13] MEDS ORDERED: Acetaminophen/Codeine 30-300mg Tablet PO PRN (11:17)
[2021-03-13 11:26] VITALS: BP 97/61; TEMP 98.1
[2021-03-13] MEDS ORDERED: Loperamide HCl 2 MG CAP PO SCH ×2 (12:15→21:00)
[2021-03-13 14:38] VITALS: BMI 25.3
[2021-03-13] MEDS ORDERED: Sodium Bicarbonate Tab 325 MG TAB PO SCH (15:00)
[2021-03-14] MEDS ORDERED: Lantus 1000 UNITS/10 ML VIAL SC SCH (09:00)
[2021-03-15 13:41] LABS: Actual Bicarbonate (HCO3a) 13.7 mEq/L (22-28); Analyzer IN Cardio OR; Base Excess (BEa) -13.7 mEq/L (-2.0 to +3.0); CO2 Tension 37.1 mmHg (35.0-45.0); Calcium, Ionized (arterial) 0.97 mmol/L (1.12-1.30); Carboxyhemoglobin (COHb) 0.3 gm% (0.0-3.0); Hemoglobin (Hb) 12.1 g/dL (14.0-18.0); O2 Tension (PaO2), arterial 254.5 mmHg (80.0-100.0); Potassium - ABG Lab 3.66 mmol/L (3.70-5.30)
[2021-03-15 13:42] LABS: Puncture Site Arterial Line; pH, Arterial 7.18 (7.35-7.45)
[2021-03-19] MEDS ORDERED: Ergocalciferol 1.25 MG(50,000 UNITS) CAP PO SCH (09:00)
== END 2021-03-13 17:31 | DRG 853 ==
LOC: ERS 13:15 → ERHOLD 14:14 → SURG A 17:18 → IMCU/EMU 03-02 09:18 → CCU 03-02 15:19 → SJJU 03-09 12:46 → SURG A 03-10 13:26
PROVIDERS: ADMIT Surgery; ATTEND Surgery
PROC: 02HV33Z Insertion of Infusion Device into Superior Vena Cava, Percutaneous Approach (ICD-10-PCS; 2021-03-01)
PROC: 30233N1 Transfusion of Nonautologous Red Blood Cells into Peripheral Vein, Percutaneous Approach (ICD-10-PCS; 2021-03-01)
PROC: 0DQB0ZZ Repair Ileum, Open Approach (ICD-10-PCS; principal; 2021-03-02)
PROC: 0W3G0ZZ Control Bleeding in Peritoneal Cavity, Open Approach (ICD-10-PCS; 2021-03-02)
PROC: 5A1945Z Respiratory Ventilation, 24-96 Consecutive Hours (ICD-10-PCS; 2021-03-02)
PROC: 0DJW4ZZ Inspection of Peritoneum, Percutaneous Endoscopic Approach (ICD-10-PCS; 2021-03-02)
PROC: 0F900ZZ Drainage of Liver, Open Approach (ICD-10-PCS; 2021-03-02)
PROC: 0DH67UZ Insertion of Feeding Device into Stomach, Via Natural or Artificial Opening (ICD-10-PCS; 2021-03-04)
DX: A41.9 Sepsis, unspecified organism (principal); E11.10 Type 2 diabetes mellitus with ketoacidosis without coma; R65.21 Severe sepsis with septic shock; K72.00 Acute and subacute hepatic failure without coma; J96.00 Acute respiratory failure, unspecified whether with hypoxia or hypercapnia; R57.1 Hypovolemic shock; K55.9 Vascular disorder of intestine, unspecified; S22.009A Unspecified fracture of unspecified thoracic vertebra, initial encounter for closed fracture; S22.41XA Multiple fractures of ribs, right side, initial encounter for closed fracture; S32.10XA Unspecified fracture of sacrum, initial encounter for closed fracture; N17.9 Acute kidney failure, unspecified; E87.1 Hypo-osmolality and hyponatremia; D62 Acute posthemorrhagic anemia; R18.8 Other ascites; N39.0 Urinary tract infection, site not specified; E87.0 Hyperosmolality and hypernatremia; S36.438A Laceration of other part of small intestine, initial encounter; Z20.822 Contact with and (suspected) exposure to COVID-19; E11.65 Type 2 diabetes mellitus with hyperglycemia; G89.29 Other chronic pain; M54.2 Cervicalgia; M54.9 Dorsalgia, unspecified; E55.9 Vitamin D deficiency, unspecified; S06.0X0A Concussion without loss of consciousness, initial encounter; E87.6 Hypokalemia; B95.5 Unspecified streptococcus as the cause of diseases classified elsewhere; V86.59XA Driver of other special all-terrain or other off-road motor vehicle injured in nontraffic accident, initial encounter; Z53.31 Laparoscopic surgical procedure converted to open procedure; Z85.51 Personal history of malignant neoplasm of bladder; Z85.038 Personal history of other malignant neoplasm of large intestine; Z88.1 Allergy status to other antibiotic agents; Z98.890 Other specified postprocedural states; Z78.1 Physical restraint status; I10 Essential (primary) hypertension
CPT/HCPCS: 36415; 36416; 36430; 36556; 36600; 51702; 70450; 71045; 71260; 72125; 74018; 74177; 80048; 80053; 80069; 80076; 80156; 80306; 80307; 81003; 81015; 82010; 82140; 82306; 82570; 82805; 83036; 83605; 83690; 83735; 83880; 84100; 85025; 85060; 85384; 85610; 85730; 86850; 86900; 86901; 87086; 94002; 94003; 94660; 96365; 96375; C9113; G0390; J0132; J0171; J0696; J1630; J1650; J1815; J2060; J2270; J2370; J2405; J2704; J2997; J3010; J3430; J3475; J3490; J7050; J7070; J7620; P9016; P9035; P9045; P9047; P9059; Q9967; S0020; U0003; U0005

== ENCOUNTER 2023-02-25 14:36 | Inpatient (IN) | payer MEDICARE ==
[2023-02-25 19:38] LABS: #Basophils 0.1 thou/uL (0.0-0.2); #Eosinphils 0.3 thou/uL (0.0-0.7); #Monocytes 1.2 thou/uL (0.11-0.59); #Neutrophils 13.1 thou/uL (1.40-6.50); %Basophils 0.3 % (0.0-1.0); %Eosinophils 1.8 % (0.0-10.0); %Lymphocytes 6.2 % (21.0-51.0); %Monocytes 7.6 % (0.0-10.0); %Neutrophils 83.3 % (42.0-75.0); Hemoglobin 11.1 g/dL (14.0-18.0); Mean Corpuscular HGB CONC 32.4 g/dL (32.0-36.0); Mean Corpuscular Hemoglobin 26.8 pg (27.0-31.0); Mean Corpuscular Volume 82.9 fl (78.0-98.0); Mean Platelet Volume 9.8 fL (7.4-10.4); Platelet Count 192 10x3/uL (130-400); RBC Distribution Width 13.2 % (11.5-14.5); Red Blood Cell (RBC) Count 4.14 mill/uL (4.70-6.10); White Blood Cell (WBC) Count 15.8 10x3/uL (4.8-10.8)
[2023-02-25] MEDS ORDERED: Sodium Chloride 0.9% 1,000 ML IV SCH (19:45)
[2023-02-25] MEDS ORDERED: Ondansetron PF 4 MG/2 ML Vial IVP PRN (19:46)
[2023-02-25] MEDS ORDERED: Glucagon 1 MG/ML KIT IM PRN (19:51)
[2023-02-25] MEDS ORDERED: Dextrose 5% in Water 1,000 ML IV PRN (19:51)
[2023-02-25] MEDS ORDERED: Dextrose 50% Abboject 50 ML SYRINGE SLOW IVP PRN (19:51)
[2023-02-25 19:59] LABS: Anion Gap 12 mmol/L (10-20); BUN (Urea Nitrogen) 46 mg/dL (8.4-25.7); Calc. Creatinine Clearance 53 mL/min (70-130); Carbon Dioxide 21 mmol/L (22-29); Chloride 101 mmol/L (98-107); Estimated GFR 37; Glucose 163 mg/dL (70-105); Magnesium 1.9 mg/dL (1.6-2.6); Sodium 130 mmol/L (136-145)
[2023-02-25 20:18] LABS: Calcium 16.3 mg/dL (7.8-10.44)
[2023-02-25] MEDS ORDERED: Heparin 5,000 UNITS/ML VIAL SC SCH ×2 (21:00→22:00)
[2023-02-25] MEDS: Sodium Chloride 0.9% 1,000 ML IV SCH (21:16)
[2023-02-25] MEDS ORDERED: Propranolol 10 MG TAB PO SCH (21:30)
[2023-02-25] MEDS ORDERED: Gabapentin 300 MG CAP PO SCH (21:30)
[2023-02-25] MEDS ORDERED: Zoledronic Acid 4 MG in Sodium Chloride 0.9% 100 ML IVPB SCH (21:30)
[2023-02-25] MEDS: Propranolol 10 MG TAB PO SCH (21:43)
[2023-02-25] MEDS: Cefepime 1 GM in Sodium Chloride 0.9% 100 ML IVPB SCH (23:28)
[2023-02-26] MEDS: Calcitonin,Salmon,Synthetic 400 UNITS/2 ML SC SCH ×4 (00:30→23:13)
[2023-02-26] MEDS ORDERED: cefTRIAXone\\ROCEPHIN 2 GM in Sodium Chloride 0.9% 100 ML IVPB SCH (01:00)
[2023-02-26 04:47] LABS: #Basophils 0.1 thou/uL (0.0-0.2); #Eosinphils 0.3 thou/uL (0.0-0.7); #Monocytes 1.4 thou/uL (0.11-0.59); #Neutrophils 15.7 thou/uL (1.40-6.50); %Basophils 0.4 % (0.0-1.0); %Eosinophils 1.4 % (0.0-10.0); %Lymphocytes 4.7 % (21.0-51.0); %Monocytes 7.4 % (0.0-10.0); %Neutrophils 85.3 % (42.0-75.0); Hemoglobin 10.8 g/dL (14.0-18.0); Mean Corpuscular HGB CONC 32.5 g/dL (32.0-36.0); Mean Corpuscular Hemoglobin 26.9 pg (27.0-31.0); Mean Corpuscular Volume 82.8 fl (78.0-98.0); Platelet Count 218 10x3/uL (130-400); RBC Distribution Width 13.2 % (11.5-14.5); Red Blood Cell (RBC) Count 4.01 mill/uL (4.70-6.10); White Blood Cell (WBC) Count 18.4 10x3/uL (4.8-10.8)
[2023-02-26 05:11] LABS: Anion Gap 10 mmol/L (10-20); BUN (Urea Nitrogen) 41 mg/dL (8.4-25.7); Calc. Creatinine Clearance 55 mL/min (70-130); Carbon Dioxide 22 mmol/L (22-29); Chloride 102 mmol/L (98-107); Estimated GFR 39; Glucose 157 mg/dL (70-105); Magnesium 1.5 mg/dL (1.6-2.6); Potassium 3.9 mmol/L (3.5-5.1); Sodium 130 mmol/L (136-145)
[2023-02-26] MEDS: Sodium Chloride 0.9% 1,000 ML IV SCH ×4 (05:17→23:20)
[2023-02-26 05:36] LABS: Calcium 15.7 mg/dL (7.8-10.44)
[2023-02-26] MEDS ORDERED: Heparin 5,000 UNITS/ML VIAL SC SCH ×2 (09:00→21:00)
[2023-02-26] MEDS: Gabapentin 300 MG CAP PO SCH ×2 (10:42→21:30)
[2023-02-26] MEDS: Folic Acid 1 MG TAB PO SCH (10:42)
[2023-02-26] MEDS: Propranolol 10 MG TAB PO SCH ×2 (10:43→21:31)
[2023-02-26] MEDS: Multivitamin W/ Minerals 1 TAB PO SCH (10:43)
[2023-02-26] MEDS: Thiamine 100 MG TAB PO SCH (10:43)
[2023-02-26] MEDS: Cefepime 1 GM in Sodium Chloride 0.9% 100 ML IVPB SCH (15:18)
[2023-02-26] MEDS ORDERED: Lorazepam 2 MG/ML VIAL SLOW IVP SCH (22:15)
[2023-02-27] MEDS: Cefepime 1 GM in Sodium Chloride 0.9% 100 ML IVPB SCH ×2 (01:18→15:12)
[2023-02-27 04:30] LABS: #Basophils 0.1 thou/uL (0.0-0.2); #Eosinphils 0.2 thou/uL (0.0-0.7); #Neutrophils 13.4 thou/uL (1.40-6.50); %Basophils 0.3 % (0.0-1.0); %Eosinophils 1.4 % (0.0-10.0); %Lymphocytes 3.6 % (21.0-51.0); %Monocytes 6.2 % (0.0-10.0); %Neutrophils 87.5 % (42.0-75.0); Hemoglobin 9.8 g/dL (14.0-18.0); Mean Corpuscular HGB CONC 32.8 g/dL (32.0-36.0); Mean Corpuscular Volume 82.4 fl (78.0-98.0); Mean Platelet Volume 9.8 fL (7.4-10.4); Platelet Count 186 10x3/uL (130-400); RBC Distribution Width 13.2 % (11.5-14.5); Red Blood Cell (RBC) Count 3.63 mill/uL (4.70-6.10); White Blood Cell (WBC) Count 15.3 10x3/uL (4.8-10.8)
[2023-02-27 05:31] LABS: Anion Gap 16 mmol/L (10-20); BUN (Urea Nitrogen) 37 mg/dL (8.4-25.7); Calc. Creatinine Clearance 56 mL/min (70-130); Calcium 12.7 mg/dL (7.8-10.44); Carbon Dioxide 18 mmol/L (22-29); Chloride 110 mmol/L (98-107); Estimated GFR 46; Glucose 207 mg/dL (70-105); Magnesium 1.2 mg/dL (1.6-2.6); Potassium 3.7 mmol/L (3.5-5.1); Sodium 140 mmol/L (136-145)
[2023-02-27] MEDS ORDERED: Magnesium Sulfate In Water 4 GM in Premix Bag 1 BAG IVPB SCH (08:00)
[2023-02-27] MEDS: Sodium Chloride 0.9% 1,000 ML IV SCH ×3 (10:00→21:12)
[2023-02-27] MEDS: Folic Acid 1 MG TAB PO SCH (10:01)
[2023-02-27] MEDS: Thiamine 100 MG TAB PO SCH (10:01)
[2023-02-27] MEDS: Propranolol 10 MG TAB PO SCH ×2 (10:01→21:08)
[2023-02-27] MEDS: Gabapentin 300 MG CAP PO SCH ×2 (10:01→21:07)
[2023-02-27] MEDS: Multivitamin W/ Minerals 1 TAB PO SCH (10:01)
[2023-02-27] MEDS: Calcitonin,Salmon,Synthetic 400 UNITS/2 ML SC SCH (15:11)
[2023-02-28] MEDS: Cefepime 1 GM in Sodium Chloride 0.9% 100 ML IVPB SCH ×2 (00:48→12:14)
[2023-02-28 05:05] LABS: #Eosinphils 0.3 thou/uL (0.0-0.7); #Monocytes 1.2 thou/uL (0.11-0.59); #Neutrophils 13.8 thou/uL (1.40-6.50); %Basophils 0.2 % (0.0-1.0); %Eosinophils 1.9 % (0.0-10.0); %Lymphocytes 4.6 % (21.0-51.0); %Monocytes 7.3 % (0.0-10.0); %Neutrophils 85.1 % (42.0-75.0); Hemoglobin 9.7 g/dL (14.0-18.0); Mean Corpuscular HGB CONC 31.6 g/dL (32.0-36.0); Mean Corpuscular Hemoglobin 26.1 pg (27.0-31.0); Mean Corpuscular Volume 82.7 fl (78.0-98.0); Mean Platelet Volume 9.6 fL (7.4-10.4); Platelet Count 183 10x3/uL (130-400); RBC Distribution Width 13.5 % (11.5-14.5); Red Blood Cell (RBC) Count 3.71 mill/uL (4.70-6.10); White Blood Cell (WBC) Count 16.2 10x3/uL (4.8-10.8)
[2023-02-28 05:39] LABS: Anion Gap 17 mmol/L (10-20); BUN (Urea Nitrogen) 33 mg/dL (8.4-25.7); Calc. Creatinine Clearance 65 mL/min (70-130); Calcium 10.3 mg/dL (7.8-10.44); Carbon Dioxide 15 mmol/L (22-29); Chloride 113 mmol/L (98-107); Estimated GFR 56; Glucose 203 mg/dL (70-105); Magnesium 1.6 mg/dL (1.6-2.6); Potassium 3.5 mmol/L (3.5-5.1); Sodium 141 mmol/L (136-145)
[2023-02-28] MEDS: Gabapentin 300 MG CAP PO SCH ×3 (07:31→21:16)
[2023-02-28] MEDS: Sodium Chloride 0.9% 1,000 ML IV SCH ×2 (09:22→12:13)
[2023-02-28] MEDS: Propranolol 10 MG TAB PO SCH ×2 (09:27→21:16)
[2023-02-28] MEDS ORDERED: Magnesium 2 GM/50 ML(in water) 2 GM in Premix Bag 1 BAG IVPB SCH (10:00)
[2023-02-28] MEDS ORDERED: Potassium Phosphate 15 MMOL in Sodium Chloride 0.9% 250 ML 250 ML IVPB SCH (10:00)
[2023-02-28] MEDS ORDERED: fentaNYL 50 mcg/mL 1 mL Vial ONE (10:44)
[2023-02-28] MEDS: Folic Acid 1 MG TAB PO SCH (11:47)
[2023-02-28] MEDS: Thiamine 100 MG TAB PO SCH (11:47)
[2023-02-28] MEDS: Multivitamin W/ Minerals 1 TAB PO SCH (11:48)
[2023-02-28] MEDS: Sodium Bicarbonate Tab 325 MG TAB PO SCH ×3 (11:48→21:16)
[2023-02-28 11:53] VITALS: BMI 25.1
[2023-02-28] MEDS ORDERED: Electrolyte Replacement Protocol FS SCH (13:00)
[2023-02-28] MEDS: HumaLOG 300 UNITS/3 ML VIAL SC PRN ×2 (13:12→17:16)
[2023-02-28] MEDS: K-Phos Neutral 250 MG TAB PO SCH ×2 (17:10→21:40)
[2023-02-28] MEDS: Bisacodyl 10 MG SUPP PR SCH (21:12)
[2023-02-28] MEDS: Senokot S 8.6-50 MG TAB PO SCH (21:16)
[2023-02-28] MEDS: Polyethylene Glycol 3350 17 GM Packet PO SCH (21:16)
[2023-02-28] MEDS: Heparin 5,000 UNITS/ML VIAL SC SCH (21:17)
[2023-02-28] MEDS: Acetaminophen 325 MG TAB PO PRN (21:39)
[2023-03-01] MEDS: Cefepime 1 GM in Sodium Chloride 0.9% 100 ML IVPB SCH ×2 (00:16→13:36)
[2023-03-01] MEDS: Sodium Chloride 0.9% 1,000 ML IV SCH (05:13)
[2023-03-01 05:51] LABS: #Basophils 0.1 thou/uL (0.0-0.2); #Eosinphils 0.5 thou/uL (0.0-0.7); #Monocytes 1.3 thou/uL (0.11-0.59); #Neutrophils 12.6 thou/uL (1.40-6.50); %Basophils 0.3 % (0.0-1.0); %Eosinophils 3.3 % (0.0-10.0); %Lymphocytes 6.4 % (21.0-51.0); %Monocytes 8.2 % (0.0-10.0); %Neutrophils 80.8 % (42.0-75.0); Hemoglobin 9.5 g/dL (14.0-18.0); Mean Corpuscular Hemoglobin 26.4 pg (27.0-31.0); Mean Platelet Volume 9.7 fL (7.4-10.4); Platelet Count 184 10x3/uL (130-400); RBC Distribution Width 13.6 % (11.5-14.5); White Blood Cell (WBC) Count 15.6 10x3/uL (4.8-10.8)
[2023-03-01 06:14] LABS: ALT (SGPT) 11 U/L (8-55); AST (SGOT) 18 U/L (5-34); Albumin 2.7 g/dL (3.5-5.0); Alkaline Phosphatase 104 U/L (40-110); Anion Gap 15 mmol/L (10-20); BUN (Urea Nitrogen) 33 mg/dL (8.4-25.7); Bilirubin, Total 0.5 mg/dL (0.2-1.2); Calc. Creatinine Clearance 59 mL/min (70-130); Calcium 9.2 mg/dL (7.8-10.44); Carbon Dioxide 18 mmol/L (22-29); Chloride 111 mmol/L (98-107); Estimated GFR 49; Globulin 4.5 g/dL (2.4-3.5); Glucose 189 mg/dL (70-105); Magnesium 1.4 mg/dL (1.6-2.6); Phosphorus 1.5 mg/dL (2.3-4.7); Potassium 3.3 mmol/L (3.5-5.1); Protein, Total 7.2 g/dL (6.0-8.3); Sodium 141 mmol/L (136-145)
[2023-03-01] MEDS: HumaLOG 300 UNITS/3 ML VIAL SC PRN ×3 (06:40→21:42)
[2023-03-01] MEDS: Acetaminophen 325 MG TAB PO PRN ×2 (06:41→17:31)
[2023-03-01] MEDS ORDERED: Magnesium Sulfate In Water 4 GM in Premix Bag 1 BAG IVPB SCH (08:00)
[2023-03-01] MEDS ORDERED: Potassium Chloride 20 MEQ TAB PO SCH (08:00)
[2023-03-01] MEDS ORDERED: Potassium Phosphate 30 MMOL in Sodium Chloride 0.9% 500 ML IVPB SCH (09:00)
[2023-03-01] MEDS: Polyethylene Glycol 3350 17 GM Packet PO SCH (09:20)
[2023-03-01] MEDS: Senokot S 8.6-50 MG TAB PO SCH (09:29)
[2023-03-01] MEDS: PHOS-NAK 1 PKT PACK PO SCH ×4 (09:30→21:27)
[2023-03-01] MEDS: Heparin 5,000 UNITS/ML VIAL SC SCH ×2 (09:30→21:27)
[2023-03-01] MEDS: Multivitamin W/ Minerals 1 TAB PO SCH (09:31)
[2023-03-01] MEDS: Propranolol 10 MG TAB PO SCH ×2 (09:31→21:26)
[2023-03-01] MEDS: Gabapentin 300 MG CAP PO SCH ×2 (09:31→21:25)
[2023-03-01] MEDS: Folic Acid 1 MG TAB PO SCH (09:31)
[2023-03-01] MEDS: Thiamine 100 MG TAB PO SCH (09:31)
[2023-03-01] MEDS: Sodium Bicarbonate Tab 325 MG TAB PO SCH ×3 (09:32→21:25)
[2023-03-01] MEDS: Bisacodyl 10 MG SUPP PR SCH (21:15)
[2023-03-02] MEDS: Cefepime 1 GM in Sodium Chloride 0.9% 100 ML IVPB SCH ×2 (01:58→12:29)
[2023-03-02] MEDS ORDERED: hydrOXYzine 25 MG TAB PO SCH (02:15)
[2023-03-02] MEDS: Melatonin 3 MG TAB PO PRN (02:34)
[2023-03-02] MEDS: Sodium Chloride 0.9% 1,000 ML IV SCH (05:55)
[2023-03-02 06:00] LABS: #Basophils 0.1 thou/uL (0.0-0.2); #Eosinphils 0.5 thou/uL (0.0-0.7); #Monocytes 1.2 thou/uL (0.11-0.59); #Neutrophils 12.4 thou/uL (1.40-6.50); %Basophils 0.4 % (0.0-1.0); %Lymphocytes 6.5 % (21.0-51.0); %Monocytes 8.1 % (0.0-10.0); %Neutrophils 81.3 % (42.0-75.0); Hemoglobin 9.4 g/dL (14.0-18.0); Mean Corpuscular Hemoglobin 26.2 pg (27.0-31.0); Mean Corpuscular Volume 79.4 fl (78.0-98.0); Mean Platelet Volume 9.5 fL (7.4-10.4); Platelet Count 145 10x3/uL (130-400); RBC Distribution Width 13.4 % (11.5-14.5); Red Blood Cell (RBC) Count 3.59 mill/uL (4.70-6.10); White Blood Cell (WBC) Count 15.3 10x3/uL (4.8-10.8)
[2023-03-02] MEDS: HumaLOG 300 UNITS/3 ML VIAL SC PRN ×4 (06:00→20:21)
[2023-03-02 06:33] LABS: ALT (SGPT) 12 U/L (8-55); AST (SGOT) 15 U/L (5-34); Albumin 2.5 g/dL (3.5-5.0); Alkaline Phosphatase 98 U/L (40-110); Anion Gap 12 mmol/L (10-20); BUN (Urea Nitrogen) 26 mg/dL (8.4-25.7); Bilirubin, Total 0.3 mg/dL (0.2-1.2); Calc. Creatinine Clearance 57 mL/min (70-130); Calcium 7.8 mg/dL (7.8-10.44); Carbon Dioxide 19 mmol/L (22-29); Chloride 108 mmol/L (98-107); Estimated GFR 48; Glucose 229 mg/dL (70-105); Magnesium 1.4 mg/dL (1.6-2.6); Phosphorus 1.4 mg/dL (2.3-4.7); Potassium 3.8 mmol/L (3.5-5.1); Protein, Total 6.5 g/dL (6.0-8.3); Sodium 135 mmol/L (136-145)
[2023-03-02] MEDS ORDERED: Magnesium Sulfate In Water 4 GM in Premix Bag 1 BAG IVPB SCH (08:00)
[2023-03-02] MEDS: PHOS-NAK 1 PKT PACK PO SCH ×4 (09:17→20:20)
[2023-03-02] MEDS: Thiamine 100 MG TAB PO SCH (09:18)
[2023-03-02] MEDS: Propranolol 10 MG TAB PO SCH ×2 (09:18→20:19)
[2023-03-02] MEDS: Folic Acid 1 MG TAB PO SCH (09:18)
[2023-03-02] MEDS: Gabapentin 300 MG CAP PO SCH ×2 (09:18→20:19)
[2023-03-02] MEDS: Sodium Bicarbonate Tab 325 MG TAB PO SCH ×3 (09:19→20:19)
[2023-03-02] MEDS: Multivitamin W/ Minerals 1 TAB PO SCH (09:19)
[2023-03-02] MEDS: Heparin 5,000 UNITS/ML VIAL SC SCH ×2 (09:19→20:20)
[2023-03-02] MEDS: Insulin Glargine 30 UNITS/0.3 ML VIAL SC SCH (20:20)
[2023-03-03] MEDS: Sodium Chloride 0.9% 1,000 ML IV SCH ×2 (00:24→16:53)
[2023-03-03] MEDS: HumaLOG 300 UNITS/3 ML VIAL SC PRN ×4 (05:28→20:28)
[2023-03-03] MEDS: Acetaminophen 325 MG TAB PO PRN (05:28)
[2023-03-03 07:38] LABS: #Basophils 0.1 thou/uL (0.0-0.2); #Eosinphils 0.4 thou/uL (0.0-0.7); #Monocytes 1.4 thou/uL (0.11-0.59); #Neutrophils 12.9 thou/uL (1.40-6.50); %Basophils 0.5 % (0.0-1.0); %Eosinophils 2.5 % (0.0-10.0); %Lymphocytes 5.5 % (21.0-51.0); %Neutrophils 81.7 % (42.0-75.0); Hemoglobin 8.6 g/dL (14.0-18.0); Mean Corpuscular HGB CONC 32.2 g/dL (32.0-36.0); Mean Corpuscular Hemoglobin 25.9 pg (27.0-31.0); Mean Corpuscular Volume 80.4 fl (78.0-98.0); Mean Platelet Volume 10.3 fL (7.4-10.4); Platelet Count 147 10x3/uL (130-400); RBC Distribution Width 13.5 % (11.5-14.5); Red Blood Cell (RBC) Count 3.32 mill/uL (4.70-6.10); White Blood Cell (WBC) Count 15.8 10x3/uL (4.8-10.8)
[2023-03-03 08:07] LABS: Anion Gap 13 mmol/L (10-20); BUN (Urea Nitrogen) 25 mg/dL (8.4-25.7); Calc. Creatinine Clearance 52 mL/min (70-130); Calcium 7.2 mg/dL (7.8-10.44); Carbon Dioxide 16 mmol/L (22-29); Chloride 106 mmol/L (98-107); Estimated GFR 42; Glucose 230 mg/dL (70-105); Magnesium 1.7 mg/dL (1.6-2.6); Phosphorus Less than 1.0 mg/dL (2.3-4.7); Potassium 3.7 mmol/L (3.5-5.1); Sodium 131 mmol/L (136-145)
[2023-03-03] MEDS ORDERED: Magnesium 2 GM/50 ML(in water) 2 GM in Premix Bag 1 BAG IVPB SCH (08:30)
[2023-03-03] MEDS ORDERED: Potassium Phosphate 30 MMOL in Sodium Chloride 0.9% 500 ML IVPB SCH (10:00)
[2023-03-03] MEDS: Folic Acid 1 MG TAB PO SCH (10:16)
[2023-03-03] MEDS: Thiamine 100 MG TAB PO SCH (10:16)
[2023-03-03] MEDS: Sodium Bicarbonate Tab 325 MG TAB PO SCH ×2 (10:16→16:39)
[2023-03-03] MEDS: Propranolol 10 MG TAB PO SCH ×2 (10:17→20:32)
[2023-03-03] MEDS: Gabapentin 300 MG CAP PO SCH ×2 (10:17→20:28)
[2023-03-03] MEDS: Heparin 5,000 UNITS/ML VIAL SC SCH (10:18)
[2023-03-03] MEDS: Multivitamin W/ Minerals 1 TAB PO SCH (10:39)
[2023-03-03 18:37] LABS: Magnesium 1.7 mg/dL (1.6-2.6); Phosphorus 2.9 mg/dL (2.3-4.7)
[2023-03-03] MEDS: Insulin Glargine 30 UNITS/0.3 ML VIAL SC SCH (20:28)
[2023-03-03] MEDS: Melatonin 3 MG TAB PO PRN (20:32)
[2023-03-04] MEDS: Sodium Chloride 0.9% 1,000 ML IV SCH (00:52)
[2023-03-04 07:35] LABS: #Basophils 0.1 thou/uL (0.0-0.2); #Eosinphils 0.5 thou/uL (0.0-0.7); #Monocytes 1.6 thou/uL (0.11-0.59); #Neutrophils 13.8 thou/uL (1.40-6.50); %Basophils 0.5 % (0.0-1.0); %Lymphocytes 5.5 % (21.0-51.0); %Monocytes 9.3 % (0.0-10.0); %Neutrophils 80.6 % (42.0-75.0); Hemoglobin 8.7 g/dL (14.0-18.0); Mean Corpuscular Hemoglobin 26.3 pg (27.0-31.0); Mean Corpuscular Volume 82.2 fl (78.0-98.0); Mean Platelet Volume 10.2 fL (7.4-10.4); Platelet Count 155 10x3/uL (130-400); RBC Distribution Width 13.5 % (11.5-14.5); Red Blood Cell (RBC) Count 3.31 mill/uL (4.70-6.10); White Blood Cell (WBC) Count 17.1 10x3/uL (4.8-10.8)
[2023-03-04 08:08] LABS: Anion Gap 13 mmol/L (10-20); BUN (Urea Nitrogen) 27 mg/dL (8.4-25.7); Calc. Creatinine Clearance 47 mL/min (70-130); Calcium 7.1 mg/dL (7.8-10.44); Carbon Dioxide 17 mmol/L (22-29); Chloride 106 mmol/L (98-107); Estimated GFR 38; Glucose 227 mg/dL (70-105); Magnesium 1.5 mg/dL (1.6-2.6); Phosphorus 1.6 mg/dL (2.3-4.7); Potassium 4.1 mmol/L (3.5-5.1); Sodium 132 mmol/L (136-145)
[2023-03-04] MEDS ORDERED: Magnesium 2 GM/50 ML(in water) 2 GM in Premix Bag 1 BAG IVPB SCH (09:00)
[2023-03-04] MEDS: Thiamine 100 MG TAB PO SCH (09:15)
[2023-03-04] MEDS: Gabapentin 300 MG CAP PO SCH ×2 (09:15→19:56)
[2023-03-04] MEDS: Folic Acid 1 MG TAB PO SCH (09:15)
[2023-03-04] MEDS: Multivitamin W/ Minerals 1 TAB PO SCH (09:15)
[2023-03-04] MEDS: Propranolol 10 MG TAB PO SCH ×2 (09:16→19:56)
[2023-03-04] MEDS ORDERED: Fentanyl 250 MCG/5 ML VIAL ONE (12:03)
[2023-03-04] MEDS ORDERED: Ondansetron PF 4 MG/2 ML Vial ONE (12:25)
[2023-03-04] MEDS ORDERED: Rocuronium Bromide 10 MG/ML (10ML VIAL) ONE (12:25)
[2023-03-04] MEDS ORDERED: PHENYLEPHRINE-NS 100 MCG/ML 10 ML SYRINGE ONE (12:25)
[2023-03-04] MEDS ORDERED: PROPOFOL 200 MG/20 ML VIAL ONE (12:25)
[2023-03-04] MEDS ORDERED: Lidocaine 1% PF 5 ML VIAL ONE (12:25)
[2023-03-04] MEDS ORDERED: SUGAMMADEX SODIUM 200 MG/2 ML VIAL ONE (13:26)
[2023-03-04] MEDS: Acetaminophen 325 MG TAB PO PRN (18:18)
[2023-03-04] MEDS: HumaLOG 300 UNITS/3 ML VIAL SC PRN ×2 (18:22→22:02)
[2023-03-04] MEDS: Insulin Glargine 30 UNITS/0.3 ML VIAL SC SCH (19:56)
[2023-03-05] MEDS: HumaLOG 300 UNITS/3 ML VIAL SC PRN ×3 (06:30→21:18)
[2023-03-05] MEDS: Acetaminophen 325 MG TAB PO PRN (06:30)
[2023-03-05] MEDS: Multivitamin W/ Minerals 1 TAB PO SCH (09:12)
[2023-03-05] MEDS: Thiamine 100 MG TAB PO SCH (09:12)
[2023-03-05] MEDS: Folic Acid 1 MG TAB PO SCH (09:12)
[2023-03-05] MEDS: Gabapentin 300 MG CAP PO SCH ×2 (09:12→21:14)
[2023-03-05 10:34] LABS: #Basophils 0.1 thou/uL (0.0-0.2); #Eosinphils 0.4 thou/uL (0.0-0.7); #Monocytes 1.1 thou/uL (0.11-0.59); %Basophils 0.4 % (0.0-1.0); %Eosinophils 2.5 % (0.0-10.0); %Lymphocytes 4.6 % (21.0-51.0); %Monocytes 7.7 % (0.0-10.0); %Neutrophils 84.1 % (42.0-75.0); Hemoglobin 8.4 g/dL (14.0-18.0); Mean Corpuscular HGB CONC 32.3 g/dL (32.0-36.0); Mean Corpuscular Hemoglobin 26.1 pg (27.0-31.0); Mean Corpuscular Volume 80.7 fl (78.0-98.0); Mean Platelet Volume 10.5 fL (7.4-10.4); Platelet Count 171 10x3/uL (130-400); RBC Distribution Width 13.5 % (11.5-14.5); Red Blood Cell (RBC) Count 3.22 mill/uL (4.70-6.10); White Blood Cell (WBC) Count 14.3 10x3/uL (4.8-10.8)
[2023-03-05] MEDS: ALPRAZolam 0.25 MG TAB PO PRN ×2 (10:39→17:37)
[2023-03-05] MEDS: Propranolol 10 MG TAB PO SCH ×2 (10:39→21:14)
[2023-03-05 10:59] LABS: Anion Gap 15 mmol/L (10-20); BUN (Urea Nitrogen) 33 mg/dL (8.4-25.7); Calc. Creatinine Clearance 44 mL/min (70-130); Calcium 7.2 mg/dL (7.8-10.44); Carbon Dioxide 17 mmol/L (22-29); Chloride 104 mmol/L (98-107); Estimated GFR 35; Glucose 260 mg/dL (70-105); Magnesium 1.5 mg/dL (1.6-2.6); Phosphorus 1.7 mg/dL (2.3-4.7); Potassium 4.5 mmol/L (3.5-5.1); Sodium 131 mmol/L (136-145)
[2023-03-05] MEDS ORDERED: Sodium Phosphate 15 MMOL in Sodium Chloride 0.9% 250 ML 250 ML IVPB SCH (14:00)
[2023-03-05] MEDS ORDERED: Magnesium 2 GM/50 ML(in water) 2 GM in Premix Bag 1 BAG IVPB SCH (14:00)
[2023-03-05] MEDS: Insulin Glargine 30 UNITS/0.3 ML VIAL SC SCH (21:17)
[2023-03-05] MEDS ORDERED: hydrOXYzine 25 MG TAB PO SCH (21:45)
[2023-03-05] MEDS ORDERED: guaiFENesin ER 600 MG TAB PO SCH (22:15)
[2023-03-05] MEDS ORDERED: Ipratropium/Albuterol 3 ML NEB NEB SCH (22:15)
[2023-03-05] MEDS: Melatonin 3 MG TAB PO PRN (23:16)
[2023-03-05 23:41] LABS: Anion Gap 15 mmol/L (10-20); BUN (Urea Nitrogen) 32 mg/dL (8.4-25.7); Calc. Creatinine Clearance 42 mL/min (70-130); Carbon Dioxide 16 mmol/L (22-29); Chloride 104 mmol/L (98-107); Estimated GFR 33; Glucose 267 mg/dL (70-105); Magnesium 1.7 mg/dL (1.6-2.6); Sodium 131 mmol/L (136-145)
[2023-03-05 23:51] LABS: Calcium 6.9 mg/dL (7.8-10.44)
[2023-03-06] MEDS: HumaLOG 300 UNITS/3 ML VIAL SC PRN ×4 (06:35→21:12)
[2023-03-06 07:42] LABS: #Basophils 0.1 thou/uL (0.0-0.2); #Eosinphils 0.4 thou/uL (0.0-0.7); #Monocytes 1.3 thou/uL (0.11-0.59); %Basophils 0.6 % (0.0-1.0); %Eosinophils 2.7 % (0.0-10.0); %Lymphocytes 5.2 % (21.0-51.0); %Monocytes 8.8 % (0.0-10.0); %Neutrophils 81.5 % (42.0-75.0); Hemoglobin 7.9 g/dL (14.0-18.0); Mean Corpuscular HGB CONC 31.3 g/dL (32.0-36.0); Mean Corpuscular Hemoglobin 25.5 pg (27.0-31.0); Mean Corpuscular Volume 81.3 fl (78.0-98.0); Mean Platelet Volume 10.1 fL (7.4-10.4); Platelet Count 165 10x3/uL (130-400); RBC Distribution Width 13.5 % (11.5-14.5); White Blood Cell (WBC) Count 14.7 10x3/uL (4.8-10.8)
[2023-03-06 08:02] LABS: Anion Gap 15 mmol/L (10-20); BUN (Urea Nitrogen) 31 mg/dL (8.4-25.7); Calc. Creatinine Clearance 42 mL/min (70-130); Calcium 7.1 mg/dL (7.8-10.44); Carbon Dioxide 17 mmol/L (22-29); Chloride 105 mmol/L (98-107); Estimated GFR 33; Glucose 264 mg/dL (70-105); Magnesium 1.5 mg/dL (1.6-2.6); Phosphorus 1.8 mg/dL (2.3-4.7); Potassium 4.2 mmol/L (3.5-5.1); Sodium 133 mmol/L (136-145)
[2023-03-06] MEDS: Gabapentin 300 MG CAP PO SCH ×2 (09:08→21:14)
[2023-03-06] MEDS: Multivitamin W/ Minerals 1 TAB PO SCH (09:08)
[2023-03-06] MEDS: Folic Acid 1 MG TAB PO SCH (09:08)
[2023-03-06] MEDS: Thiamine 100 MG TAB PO SCH (09:08)
[2023-03-06] MEDS: guaiFENesin ER 600 MG TAB PO SCH ×2 (09:08→21:15)
[2023-03-06] MEDS: Propranolol 10 MG TAB PO SCH ×2 (09:09→21:15)
[2023-03-06 11:15] LABS: Hemoglobin A1c 7.2 % (4.0-6.0)
[2023-03-06] MEDS: ALPRAZolam 0.25 MG TAB PO PRN (16:10)
[2023-03-06] MEDS ORDERED: Promethazine HCl 25 MG in Sodium Chloride 0.9% 50 ML IVPB PRN (18:45)
[2023-03-06] MEDS ORDERED: hydrOXYzine 25 MG TAB PO SCH (21:00)
[2023-03-06] MEDS: Insulin Glargine 30 UNITS/0.3 ML VIAL SC SCH (21:10)
[2023-03-06] MEDS: Melatonin 3 MG TAB PO PRN (21:15)
[2023-03-07] MEDS: HumaLOG 300 UNITS/3 ML VIAL SC PRN ×4 (05:17→22:05)
[2023-03-07 05:52] LABS: #Basophils 0.1 thou/uL (0.0-0.2); #Eosinphils 0.3 thou/uL (0.0-0.7); #Monocytes 1.2 thou/uL (0.11-0.59); #Neutrophils 10.2 thou/uL (1.40-6.50); %Basophils 0.6 % (0.0-1.0); %Eosinophils 2.4 % (0.0-10.0); %Lymphocytes 5.9 % (21.0-51.0); %Monocytes 9.5 % (0.0-10.0); %Neutrophils 80.9 % (42.0-75.0); Hemoglobin 7.5 g/dL (14.0-18.0); Mean Corpuscular HGB CONC 31.6 g/dL (32.0-36.0); Mean Corpuscular Hemoglobin 25.5 pg (27.0-31.0); Mean Corpuscular Volume 80.6 fl (78.0-98.0); Platelet Count 154 10x3/uL (130-400); RBC Distribution Width 13.3 % (11.5-14.5); Red Blood Cell (RBC) Count 2.94 mill/uL (4.70-6.10); White Blood Cell (WBC) Count 12.5 10x3/uL (4.8-10.8)
[2023-03-07 06:19] LABS: Anion Gap 15 mmol/L (10-20); BUN (Urea Nitrogen) 31 mg/dL (8.4-25.7); Calc. Creatinine Clearance 41 mL/min (70-130); Calcium 7.1 mg/dL (7.8-10.44); Carbon Dioxide 16 mmol/L (22-29); Chloride 105 mmol/L (98-107); Estimated GFR 32; Glucose 210 mg/dL (70-105); Magnesium 1.3 mg/dL (1.6-2.6); Potassium 4.2 mmol/L (3.5-5.1); Sodium 132 mmol/L (136-145)
[2023-03-07 06:22] LABS: Phosphorus 1.5 mg/dL (2.3-4.7)
[2023-03-07] MEDS: Propranolol 10 MG TAB PO SCH ×2 (08:40→22:05)
[2023-03-07] MEDS: Multivitamin W/ Minerals 1 TAB PO SCH (08:40)
[2023-03-07] MEDS: Thiamine 100 MG TAB PO SCH (08:40)
[2023-03-07] MEDS: Gabapentin 300 MG CAP PO SCH ×2 (08:40→20:23)
[2023-03-07] MEDS: Folic Acid 1 MG TAB PO SCH (08:40)
[2023-03-07] MEDS: Acetaminophen 325 MG TAB PO PRN (08:40)
[2023-03-07] MEDS: guaiFENesin ER 600 MG TAB PO SCH ×2 (08:40→20:22)
[2023-03-07] MEDS ORDERED: Potassium Phosphate 30 MMOL in Sodium Chloride 0.9% 250 ML 250 ML IVPB SCH (11:15)
[2023-03-07] MEDS: ALPRAZolam 0.25 MG TAB PO PRN (17:04)
[2023-03-07] MEDS ORDERED: hydrOXYzine 25 MG TAB PO PRN (17:44)
[2023-03-07] MEDS: Melatonin 3 MG TAB PO PRN (20:22)
[2023-03-07] MEDS: Insulin Glargine 30 UNITS/0.3 ML VIAL SC SCH (20:24)
[2023-03-08] MEDS: ALPRAZolam 0.25 MG TAB PO PRN ×2 (09:08→21:35)
[2023-03-08] MEDS: guaiFENesin ER 600 MG TAB PO SCH ×2 (09:08→21:38)
[2023-03-08] MEDS: Gabapentin 300 MG CAP PO SCH ×2 (09:08→21:36)
[2023-03-08] MEDS: Multivitamin W/ Minerals 1 TAB PO SCH (09:09)
[2023-03-08] MEDS: Thiamine 100 MG TAB PO SCH (09:09)
[2023-03-08] MEDS: Folic Acid 1 MG TAB PO SCH (09:09)
[2023-03-08] MEDS: Propranolol 10 MG TAB PO SCH ×2 (09:09→21:37)
[2023-03-08 14:41] LABS: Fungus Stain Final report (.)
[2023-03-08] MEDS: Megestrol Acetate 40 MG TAB PO SCH (21:38)
[2023-03-08] MEDS: Insulin Glargine 30 UNITS/0.3 ML VIAL SC SCH (21:38)
[2023-03-08] MEDS: HumaLOG 300 UNITS/3 ML VIAL SC PRN (21:39)
[2023-03-09] MEDS: HumaLOG 300 UNITS/3 ML VIAL SC PRN ×3 (06:10→22:18)
[2023-03-09] MEDS: Thiamine 100 MG TAB PO SCH (09:07)
[2023-03-09] MEDS: Multivitamin W/ Minerals 1 TAB PO SCH (09:07)
[2023-03-09] MEDS: guaiFENesin ER 600 MG TAB PO SCH ×2 (09:07→22:16)
[2023-03-09] MEDS: Propranolol 10 MG TAB PO SCH ×2 (09:07→22:16)
[2023-03-09] MEDS: Megestrol Acetate 40 MG TAB PO SCH ×2 (09:07→22:16)
[2023-03-09] MEDS: Folic Acid 1 MG TAB PO SCH (09:07)
[2023-03-09] MEDS: Gabapentin 300 MG CAP PO SCH ×2 (09:07→22:14)
[2023-03-09 14:12] LABS: #Basophils 0.1 thou/uL (0.0-0.2); #Eosinphils 0.3 thou/uL (0.0-0.7); #Monocytes 0.9 thou/uL (0.11-0.59); #Neutrophils 11.9 thou/uL (1.40-6.50); %Basophils 0.6 % (0.0-1.0); %Eosinophils 2.3 % (0.0-10.0); %Lymphocytes 5.2 % (21.0-51.0); %Monocytes 6.7 % (0.0-10.0); %Neutrophils 84.3 % (42.0-75.0); Hemoglobin 8.2 g/dL (14.0-18.0); Mean Corpuscular HGB CONC 31.9 g/dL (32.0-36.0); Mean Corpuscular Hemoglobin 26.4 pg (27.0-31.0); Mean Corpuscular Volume 82.6 fl (78.0-98.0); Mean Platelet Volume 9.8 fL (7.4-10.4); Platelet Count 216 10x3/uL (130-400); RBC Distribution Width 13.7 % (11.5-14.5); Red Blood Cell (RBC) Count 3.11 mill/uL (4.70-6.10); White Blood Cell (WBC) Count 14.1 10x3/uL (4.8-10.8)
[2023-03-09 14:36] LABS: Anion Gap 15 mmol/L (10-20); BUN (Urea Nitrogen) 32 mg/dL (8.4-25.7); Calc. Creatinine Clearance 47 mL/min (70-130); Calcium 7.5 mg/dL (7.8-10.44); Carbon Dioxide 17 mmol/L (22-29); Chloride 105 mmol/L (98-107); Estimated GFR 38; Glucose 265 mg/dL (70-105); Magnesium 1.1 mg/dL (1.6-2.6); Phosphorus 2.1 mg/dL (2.3-4.7); Potassium 4.3 mmol/L (3.5-5.1); Sodium 133 mmol/L (136-145)
[2023-03-09] MEDS: ALPRAZolam 0.25 MG TAB PO PRN (22:16)
[2023-03-09] MEDS: Acetaminophen 325 MG TAB PO PRN (22:16)
[2023-03-09] MEDS: Insulin Glargine 30 UNITS/0.3 ML VIAL SC SCH (22:17)
[2023-03-09] MEDS: Melatonin 3 MG TAB PO PRN (22:17)
[2023-03-10 06:29] LABS: #Basophils 0.1 thou/uL (0.0-0.2); #Eosinphils 0.3 thou/uL (0.0-0.7); #Monocytes 0.9 thou/uL (0.11-0.59); #Neutrophils 9.3 thou/uL (1.40-6.50); %Basophils 0.5 % (0.0-1.0); %Eosinophils 2.8 % (0.0-10.0); %Lymphocytes 7.2 % (21.0-51.0); %Monocytes 7.5 % (0.0-10.0); %Neutrophils 80.6 % (42.0-75.0); Hemoglobin 7.5 g/dL (14.0-18.0); Mean Corpuscular HGB CONC 31.9 g/dL (32.0-36.0); Mean Corpuscular Hemoglobin 26.1 pg (27.0-31.0); Mean Corpuscular Volume 81.9 fl (78.0-98.0); Platelet Count 205 10x3/uL (130-400); RBC Distribution Width 13.5 % (11.5-14.5); Red Blood Cell (RBC) Count 2.87 mill/uL (4.70-6.10); White Blood Cell (WBC) Count 11.5 10x3/uL (4.8-10.8)
[2023-03-10 07:04] LABS: Anion Gap 16 mmol/L (10-20); BUN (Urea Nitrogen) 33 mg/dL (8.4-25.7); Calc. Creatinine Clearance 44 mL/min (70-130); Calcium 7.6 mg/dL (7.8-10.44); Carbon Dioxide 16 mmol/L (22-29); Chloride 108 mmol/L (98-107); Estimated GFR 35; Glucose 205 mg/dL (70-105); Magnesium 1.1 mg/dL (1.6-2.6); Phosphorus 2.3 mg/dL (2.3-4.7); Potassium 4.3 mmol/L (3.5-5.1); Sodium 136 mmol/L (136-145)
[2023-03-10] MEDS: HumaLOG 300 UNITS/3 ML VIAL SC PRN ×4 (07:40→21:16)
[2023-03-10] MEDS ORDERED: Magnesium Sulfate In Water 4 GM in Premix Bag 1 BAG IVPB SCH (08:00)
[2023-03-10] MEDS: Gabapentin 300 MG CAP PO SCH ×2 (08:51→21:14)
[2023-03-10] MEDS: Propranolol 10 MG TAB PO SCH ×2 (08:52→21:15)
[2023-03-10] MEDS: guaiFENesin ER 600 MG TAB PO SCH ×2 (08:52→21:14)
[2023-03-10] MEDS: Megestrol Acetate 40 MG TAB PO SCH ×2 (08:52→21:15)
[2023-03-10] MEDS: Folic Acid 1 MG TAB PO SCH (08:52)
[2023-03-10] MEDS: Thiamine 100 MG TAB PO SCH (08:52)
[2023-03-10] MEDS: Multivitamin W/ Minerals 1 TAB PO SCH (08:52)
[2023-03-10] MEDS: K-Phos Neutral 250 MG TAB PO SCH ×3 (08:55→17:26)
[2023-03-10] MEDS: Acetaminophen 325 MG TAB PO PRN (14:35)
[2023-03-10] MEDS: Sodium Bicarbonate Tab 325 MG TAB PO SCH ×2 (14:35→21:14)
[2023-03-10] MEDS: ALPRAZolam 0.25 MG TAB PO PRN (21:14)
[2023-03-10] MEDS: Melatonin 3 MG TAB PO PRN (21:14)
[2023-03-10] MEDS: Insulin Glargine 30 UNITS/0.3 ML VIAL SC SCH (21:15)
[2023-03-11] MEDS: HumaLOG 300 UNITS/3 ML VIAL SC PRN ×3 (05:23→21:46)
[2023-03-11 06:55] LABS: #Basophils 0.1 thou/uL (0.0-0.2); #Eosinphils 0.3 thou/uL (0.0-0.7); #Monocytes 0.7 thou/uL (0.11-0.59); #Neutrophils 10.6 thou/uL (1.40-6.50); %Basophils 0.6 % (0.0-1.0); %Eosinophils 2.1 % (0.0-10.0); %Lymphocytes 4.2 % (21.0-51.0); %Neutrophils 86.1 % (42.0-75.0); Mean Corpuscular HGB CONC 28.6 g/dL (32.0-36.0); Mean Corpuscular Hemoglobin 25.7 pg (27.0-31.0); Mean Platelet Volume 10.1 fL (7.4-10.4); Platelet Count 207 10x3/uL (130-400); Red Blood Cell (RBC) Count 3.11 mill/uL (4.70-6.10); White Blood Cell (WBC) Count 12.3 10x3/uL (4.8-10.8)
[2023-03-11 07:18] LABS: CellaVision Operator ID LAB.CLH1; Platelet Adequacy Comment Platelets Normal; Polychromasia SLIGHT = 2-3 cells HPF (0-2)
[2023-03-11] MEDS: ALPRAZolam 0.25 MG TAB PO PRN ×2 (09:09→21:45)
[2023-03-11] MEDS: Multivitamin W/ Minerals 1 TAB PO SCH (09:10)
[2023-03-11] MEDS: Folic Acid 1 MG TAB PO SCH (09:10)
[2023-03-11] MEDS: Sodium Bicarbonate Tab 325 MG TAB PO SCH ×3 (09:10→21:45)
[2023-03-11] MEDS: Thiamine 100 MG TAB PO SCH (09:10)
[2023-03-11] MEDS: guaiFENesin ER 600 MG TAB PO SCH ×2 (09:10→21:45)
[2023-03-11] MEDS: Megestrol Acetate 40 MG TAB PO SCH ×2 (09:10→21:45)
[2023-03-11] MEDS: Propranolol 10 MG TAB PO SCH ×2 (09:11→21:45)
[2023-03-11] MEDS: Gabapentin 300 MG CAP PO SCH ×2 (09:11→21:45)
[2023-03-11] MEDS: K-Phos Neutral 250 MG TAB PO SCH (09:17)
[2023-03-11] MEDS: Acetaminophen 325 MG TAB PO PRN (11:00)
[2023-03-11 13:25] LABS: Anion Gap 15 mmol/L (10-20); BUN (Urea Nitrogen) 38 mg/dL (8.4-25.7); CRP (Inflammatory) 22.36 mg/dL (= or < 0.5); Calc. Creatinine Clearance 44 mL/min (70-130); Calcium 7.5 mg/dL (7.8-10.44); Carbon Dioxide 18 mmol/L (22-29); Chloride 106 mmol/L (98-107); Estimated GFR 35; Glucose 337 mg/dL (70-105); Magnesium 1.3 mg/dL (1.6-2.6); Phosphorus 2.5 mg/dL (2.3-4.7); Potassium 4.1 mmol/L (3.5-5.1); Sodium 135 mmol/L (136-145)
[2023-03-11] MEDS ORDERED: K-Phos Neutral 250 MG TAB PO SCH (16:45)
[2023-03-11] MEDS ORDERED: Electrolyte Replacement Protocol 1 EACH FS SCH (16:45)
[2023-03-11] MEDS ORDERED: Magnesium Sulfate In Water 4 GM in Premix Bag 1 BAG IVPB SCH (16:45)
[2023-03-11] MEDS ORDERED: Insulin Glargine 30 UNITS/0.3 ML VIAL SC SCH (21:00)
[2023-03-11] MEDS: Melatonin 3 MG TAB PO PRN (21:45)
[2023-03-12] MEDS: HumaLOG 300 UNITS/3 ML VIAL SC PRN (05:15)
[2023-03-12 06:10] LABS: Anion Gap 15 mmol/L (10-20); BUN (Urea Nitrogen) 36 mg/dL (8.4-25.7); Calc. Creatinine Clearance 47 mL/min (70-130); Calcium 7.8 mg/dL (7.8-10.44); Carbon Dioxide 19 mmol/L (22-29); Chloride 105 mmol/L (98-107); Estimated GFR 38; Glucose 323 mg/dL (70-105); Phosphorus 2.8 mg/dL (2.3-4.7); Potassium 3.9 mmol/L (3.5-5.1); Sodium 135 mmol/L (136-145)
[2023-03-12] MEDS ORDERED: Magnesium 2 GM/50 ML(in water) 2 GM in Premix Bag 1 BAG IVPB SCH (08:00)
[2023-03-12] MEDS: Multivitamin W/ Minerals 1 TAB PO SCH (08:55)
[2023-03-12] MEDS: Megestrol Acetate 40 MG TAB PO SCH ×2 (08:55→20:50)
[2023-03-12] MEDS: Sodium Bicarbonate Tab 325 MG TAB PO SCH ×3 (08:55→20:49)
[2023-03-12] MEDS: guaiFENesin ER 600 MG TAB PO SCH ×2 (08:55→20:49)
[2023-03-12] MEDS: Thiamine 100 MG TAB PO SCH (08:55)
[2023-03-12] MEDS: Gabapentin 300 MG CAP PO SCH ×2 (08:55→20:51)
[2023-03-12] MEDS: Folic Acid 1 MG TAB PO SCH (08:56)
[2023-03-12] MEDS: Propranolol 10 MG TAB PO SCH ×2 (08:56→20:53)
[2023-03-12] MEDS: metroNIDAZOLE 500 MG TAB PO SCH ×3 (11:24→20:49)
[2023-03-12] MEDS: ALPRAZolam 0.25 MG TAB PO PRN ×2 (11:24→20:50)
[2023-03-12] MEDS ORDERED: Gabapentin 300 MG CAP PO SCH (15:15)
[2023-03-12] MEDS: K-Phos Neutral 250 MG TAB PO SCH (17:11)
[2023-03-12] MEDS: Ipratropium/Albuterol 3 ML NEB NEB SCH ×2 (19:13→23:02)
[2023-03-12] MEDS: Budesonide 0.5 MG/2 ML NEB NEB SCH (19:15)
[2023-03-12] MEDS: Melatonin 3 MG TAB PO PRN (20:50)
[2023-03-12] MEDS: traMADol HCl 50 MG TAB PO PRN (20:53)
[2023-03-12] MEDS ORDERED: Insulin Glargine 30 UNITS/0.3 ML VIAL SC SCH (21:00)
[2023-03-13] MEDS: Ipratropium/Albuterol 3 ML NEB NEB SCH ×4 (03:32→14:18)
[2023-03-13 06:32] LABS: #Basophils 0.1 thou/uL (0.0-0.2); #Eosinphils 0.2 thou/uL (0.0-0.7); #Monocytes 0.9 thou/uL (0.11-0.59); #Neutrophils 8.7 thou/uL (1.40-6.50); %Basophils 0.5 % (0.0-1.0); %Lymphocytes 6.5 % (21.0-51.0); %Monocytes 8.3 % (0.0-10.0); %Neutrophils 81.9 % (42.0-75.0); Hemoglobin 7.5 g/dL (14.0-18.0); Mean Corpuscular HGB CONC 31.3 g/dL (32.0-36.0); Mean Corpuscular Hemoglobin 25.3 pg (27.0-31.0); Mean Corpuscular Volume 80.8 fl (78.0-98.0); Mean Platelet Volume 9.6 fL (7.4-10.4); Platelet Count 222 10x3/uL (130-400); RBC Distribution Width 14.1 % (11.5-14.5); Red Blood Cell (RBC) Count 2.97 mill/uL (4.70-6.10); White Blood Cell (WBC) Count 10.6 10x3/uL (4.8-10.8)
[2023-03-13 06:58] LABS: Anion Gap 13 mmol/L (10-20); BUN (Urea Nitrogen) 35 mg/dL (8.4-25.7); CRP (Inflammatory) 23.02 mg/dL (= or < 0.5); Calc. Creatinine Clearance 51 mL/min (70-130); Carbon Dioxide 21 mmol/L (22-29); Chloride 106 mmol/L (98-107); Estimated GFR 41; Glucose 218 mg/dL (70-105); Magnesium 1.7 mg/dL (1.6-2.6); Potassium 3.9 mmol/L (3.5-5.1); Sodium 136 mmol/L (136-145)
[2023-03-13] MEDS: Budesonide 0.5 MG/2 ML NEB NEB SCH (07:03)
[2023-03-13] MEDS: HumaLOG 300 UNITS/3 ML VIAL SC PRN ×2 (07:41→13:39)
[2023-03-13] MEDS ORDERED: Magnesium 2 GM/50 ML(in water) 2 GM in Premix Bag 1 BAG IVPB SCH (08:00)
[2023-03-13] MEDS: Folic Acid 1 MG TAB PO SCH (08:48)
[2023-03-13] MEDS: metroNIDAZOLE 500 MG TAB PO SCH (08:48)
[2023-03-13] MEDS: Thiamine 100 MG TAB PO SCH (08:48)
[2023-03-13] MEDS: Propranolol 10 MG TAB PO SCH (08:49)
[2023-03-13] MEDS: Sodium Bicarbonate Tab 325 MG TAB PO SCH (08:49)
[2023-03-13] MEDS: traMADol HCl 50 MG TAB PO PRN (08:49)
[2023-03-13] MEDS: Megestrol Acetate 40 MG TAB PO SCH (08:54)
[2023-03-13] MEDS: Multivitamin W/ Minerals 1 TAB PO SCH (08:54)
[2023-03-13] MEDS: Gabapentin 300 MG CAP PO SCH (08:55)
[2023-03-13] MEDS: guaiFENesin ER 600 MG TAB PO SCH (08:56)
[2023-03-13] MEDS: K-Phos Neutral 250 MG TAB PO SCH ×2 (08:58→12:54)
[2023-03-13 11:15] VITALS: BP 103/67; TEMP 98.3
== END 2023-03-13 14:35 | DRG 853 ==
LOC: 2NO 16:30 → SURG B 02-28 18:40
PROVIDERS: ADMIT Family Medicine; ATTEND Internal Medicine
PROC: 3E03329 Introduction of Other Anti-infective into Peripheral Vein, Percutaneous Approach (ICD-10-PCS; 2023-02-25)
PROC: 0B9F8ZX Drainage of Right Lower Lung Lobe, Via Natural or Artificial Opening Endoscopic, Diagnostic (ICD-10-PCS; principal; 2023-03-04)
PROC: 07B74ZX Excision of Thorax Lymphatic, Percutaneous Endoscopic Approach, Diagnostic (ICD-10-PCS; 2023-03-04)
PROC: 0BBF8ZX Excision of Right Lower Lung Lobe, Via Natural or Artificial Opening Endoscopic, Diagnostic (ICD-10-PCS; 2023-03-04)
DX: A41.50 Gram-negative sepsis, unspecified (principal); G93.41 Metabolic encephalopathy; J96.90 Respiratory failure, unspecified, unspecified whether with hypoxia or hypercapnia; J15.6 Pneumonia due to other Gram-negative bacteria; N17.9 Acute kidney failure, unspecified; E87.1 Hypo-osmolality and hyponatremia; N18.4 Chronic kidney disease, stage 4 (severe); E87.20 Acidosis, unspecified; C34.31 Malignant neoplasm of lower lobe, right bronchus or lung; E44.0 Moderate protein-calorie malnutrition; N13.6 Pyonephrosis; C77.1 Secondary and unspecified malignant neoplasm of intrathoracic lymph nodes; E83.52 Hypercalcemia; E83.42 Hypomagnesemia; K70.30 Alcoholic cirrhosis of liver without ascites; G89.29 Other chronic pain; M54.9 Dorsalgia, unspecified; R59.0 Localized enlarged lymph nodes; E11.22 Type 2 diabetes mellitus with diabetic chronic kidney disease; I12.9 Hypertensive chronic kidney disease with stage 1 through stage 4 chronic kidney disease, or unspecified chronic kidney disease; E83.39 Other disorders of phosphorus metabolism; F10.20 Alcohol dependence, uncomplicated; K59.00 Constipation, unspecified; D63.1 Anemia in chronic kidney disease; Z98.890 Other specified postprocedural states; Z85.51 Personal history of malignant neoplasm of bladder; Z88.1 Allergy status to other antibiotic agents; Z88.2 Allergy status to sulfonamides; Z79.4 Long term (current) use of insulin; Z79.899 Other long term (current) drug therapy; Z79.01 Long term (current) use of anticoagulants; D73.2 Chronic congestive splenomegaly; Z68.25 Body mass index [BMI] 25.0-25.9, adult; R31.9 Hematuria, unspecified
CPT/HCPCS: 36415; 36416; 71045; 71046; 71250; 76705; 78451; 80048; 80053; 82140; 83036; 83735; 83880; 83970; 84100; 84145; 85025; 86140; 87070; 87102; 87116; 87206; 88112; 88172; 88173; 88305; 88341; 88342; 93970; 94640; A9540; J0630; J0692; J1644; J1650; J1815; J1956; J2060; J2405; J2704; J3010; J3475; J3489; J3490; J7030; J7050; J7620; J7626; S0179